=== PATIENT | female | born 1975 | race Caucasian/White ===

== ENCOUNTER 2016-03-02 02:49 | Inpatient (IN) | payer SELFPAY ==
[~2016-03-02 02:49] MED LIST: HYDR-3516 PO; METO25TA3 PO; PROT40TA PO
[2016-03-02 02:51] VITALS: BP 181/110; PULSE 92; RESP 16; TEMP 98.2; O2SAT 98
[2016-03-02] MEDS ORDERED: SODIUM CHLOR 0.9% 1000 ML INJ 1,000 ML IV SCH (03:22)
[2016-03-02] MEDS ORDERED: LIDOCAINE VISCOUS 2% SOLN 15 ML UDC PO ONE (03:30)
[2016-03-02] MEDS ORDERED: SODIUM CHLORIDE 0.9% FLUSH 5 ML FLUSH IVF PRN (03:30)
[2016-03-02] MEDS ORDERED: ALUMINUM/MAGNESIUM/SIMETH 30 ML CUP PO ONE (03:30)
[2016-03-02 04:12] VITALS: RESP 16; O2SAT 100
[2016-03-02 04:12] LABS: AUTOMATED NEUTROPHIL # 11.8 TH/MM3 (1.8-7.7); BASOPHIL # 0.1 TH/MM3 (0-0.2); BASOPHIL % 0.6 % (0.0-2.0); EOSINOPHIL # 0.1 TH/MM3 (0-0.4); EOSINOPHIL % 0.6 % (0.0-4.0); HEMO FLAGS DIFF FINAL; LYMPH % 12.6 % (9.0-44.0); LYMPHOCYTE # 1.8 TH/MM3 (1.0-4.8); MEAN CELL VOLUME 93.8 FL (80.0-100.0); MEAN CORPUSCULAR HGB CONC 35.2 % (32.0-36.0); MONO % 4.6 % (0.0-8.0); NEUT % 81.6 % (16.0-70.0); PLATELET COUNT 431 TH/MM3 (150-450); RED BLOOD COUNT 4.48 MIL/MM3 (4.00-5.30); RED CELL DISTRIBUTION WIDTH 13.3 % (11.6-17.2); WHITE BLOOD COUNT 14.4 TH/MM3 (4.0-11.0)
[2016-03-02 04:13] LABS: BACTERIA, URINE OCC /hpf; BLOOD, URINE NEG (NEG); COMMENT (UR) CULT NOT INDICATED; CULTURE IF INDICATED CULT NOT INDICATED; GLUCOSE,URINE NEG (NEG); KETONE, URINE NEG (NEG); MUCUS URINE FEW /lpf (OCC); NITRITE,URINE NEG (NEG); SQUAMOUS EPITHELIAL CELL URINE 2 /hpf (0-5); URINE COLOR LIGHT-YELLOW (YELLW/STRAW)
[2016-03-02 04:21] LABS: BICARBONATE 37.6 MEQ/L (21.0-32.0); POTASSIUM 3.3 MEQ/L (3.5-5.1)
[2016-03-02 04:23] LABS: TOTAL BILIRUBIN ADULT 0.2 MG/DL (0.2-1.0)
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
[2016-03-02 04:42] LABS: CALCIUM-PROTEIN CORRECTED 15.4 MG/DL (8.5-10.1)
[2016-03-02] MEDS ORDERED: POTASSIUM CHLORIDE 20 MEQ CONTROLLED RELEASE TAB PO ONE (04:45)
[2016-03-02] MEDS ORDERED: SODIUM CHLOR 0.9% 1000 ML INJ 1,000 ML IV ONE (04:45)
[2016-03-02] MEDS ORDERED: FUROSEMIDE 20 MG/2 ML VIAL IV PUSH ONE (04:45)
[2016-03-02] MEDS ORDERED: NALOXONE HCL 0.4 MG/ML AMP IV PRN (05:30)
[2016-03-02] MEDS ORDERED: SODIUM CHLORIDE 0.9% FLUSH 5 ML FLUSH FLUSH PRN (05:30)
[2016-03-02] MEDS: DOCUSATE SODIUM 100 MG CAP PO SCH ×2 (05:30→17:50)
[2016-03-02] MEDS ORDERED: 1/2 NS + KCL 20 MEQ INJ 1,000 ML IV SCH (05:30)
[2016-03-02] MEDS ORDERED: ACETAMINOPHEN 325 MG TAB PO PRN ×2 (05:30)
[2016-03-02 08:27] VITALS: BP 143/93; PULSE 79; RESP 17; O2SAT 97
[2016-03-02] MEDS ORDERED: PANTOPRAZOLE SOD 40 MG DELAYED RELEASE TAB PO SCH (09:00)
[2016-03-02] MEDS: SODIUM CHLORIDE 0.9% FLUSH 5 ML FLUSH FLUSH SCH ×2 (09:00→20:56)
[2016-03-02] MEDS: ONDANSETRON HCL 4 MG/2 ML VIAL IV PUSH PRN ×2 (09:47→22:19)
[2016-03-02] MEDS ORDERED: SODIUM CHLOR 0.9% IV ONE (10:00)
[2016-03-02] MEDS ORDERED: ZOLEDRONIC ACID IV ONE (10:00)
[2016-03-02] MEDS: SODIUM CHLOR 0.9% 1000 ML INJ 1,000 ML IV SCH ×3 (10:18→23:35)
[2016-03-02 11:55] VITALS: BP 129/99; PULSE 76; RESP 18; O2SAT 93
[2016-03-02] MEDS: CALCITONIN SALMON INJ 400 UNITS/2 ML VIAL SQ SCH ×2 (13:04→23:52)
--- NOTE | 2016-03-02 13:17 | PD.CONS ---
HPI Service Nephrology Consult Requested By Reason for Consult Hypercalcemia Primary Care Physician No Primary Care Physician History of Present Illness Ms. Howard is a 40 year old with history of tobacco abuse. She also drinks alcohol but infrequently. She reports that she has been having abdominal discomfort and to get relief she was taking up to 45-50 Tums/day. She was also taking 3 Ibuprofen daily. In the ER she is noted to have serum Calcium of 16.4. She also has metabolic alkalosis, and renal insufficiency. She tested positive for ETOH. Review of Systems Constitutional: COMPLAINS OF: Fatigue, DENIES: Fever, Weight gain Respiratory: DENIES: Cough, Wheezing, Hemoptysis Cardiovascular: DENIES: Chest pain Gastrointestinal: COMPLAINS OF: Abdominal pain, DENIES: Black stools, Difficulty Swallowing Past Family Social History Allergies: Coded Allergies: No Known Allergies (Verified , 03/02/16) Past Medical History abdominal discomfort. Reported Medications Ibuprofen Tums Active Ordered Medications Current Medications Medications (Trade) Dose Ordered Sig/Gall[place] Route Start Time Stop Time Status Last Admin (02/08 NS + KCl 20 Meq Inj) 1,000 ml @ 100 mls/hr Q10H IV 03/02/16 05:30 03/02/16 06:47 (Protonix) 40 mg DAILY PO 03/02/16 09:00 03/02/16 08:25 (NS Flush) 2 ml UNSCH PRN FLUSH 03/02/16 05:30 (NS Flush) 2 ml BID FLUSH 03/02/16 09:00 (Tylenol) 650 mg Q4H PRN PO 03/02/16 05:30 (Colace) 100 mg Q12H PO 03/02/16 05:30 (Tylenol) 650 mg Q6H PRN PO 03/02/16 05:30 (Roxicodone) 5 mg Q4H PRN PO 03/02/16 05:30 03/02/16 09:56 Naloxone HCl 0.4 mg 0.4 mg UNSCH PRN IV 03/02/16 05:30 (NS 1000 ml Inj) 1,000 ml @ 150 mls/hr Q6H40M IV 03/02/16 08:51 03/02/16 10:18 (Zofran Inj) 4 mg Q4H PRN IV PUSH 03/02/16 09:45 03/02/16 09:47 (Miacalcin Inj) 50 units Q12HR SQ 03/02/16 10:15 03/04/16 09:00 03/02/16 13:04 Family History non contributory Social History smokinPPD. ETOH: infrequent according to her. Physical Exam Vital Signs Vital Signs Date Time Temp Pulse Resp B/P Pulse Ox O2 Delivery O2 Flow Rate FiO2 03/02/16 11:55 76 18 129/99 93 Room Air 03/02/16 08:27 79 17 143/93 97 Room Air 03/02/16 04:12 16 100 Room Air 03/02/16 03:15 16 03/02/16 02:51 98.2 92 16 181/110 98 Room Air Physical Exam GENERAL: awake, alert. SKIN: Warm and dry. HEAD: Normocephalic. EYES: No scleral icterus. No injection or drainage. NECK: Supple, trachea midline. No JVD or lymphadenopathy. CARDIOVASCULAR: Regular rate and rhythm without murmurs, gallops, or rubs. RESPIRATORY: Breath sounds equal bilaterally. No accessory muscle use. GASTROINTESTINAL: Abdomen soft, non-tender, nondistended. MUSCULOSKELETAL: No cyanosis, or edema. BACK: Nontender without obvious deformity. No CVA tenderness. Laboratory Laboratory Tests Test 03/02/16 03/02/16 03:50 03:55 White Blood Count 14.4 Red Blood Count 4.48 Hemoglobin 14.8 Hematocrit 42.0 Mean Corpuscular Volume 93.8 Mean Corpuscular Hemoglobin 33.0 Mean Corpuscular Hemoglobin 35.2 Concent Red Cell Distribution Width 13.3 Platelet Count 431 Mean Platelet Volume 7.8 Neutrophils (%) (Auto) 81.6 Lymphocytes (%) (Auto) 12.6 Monocytes (%) (Auto) 4.6 Eosinophils (%) (Auto) 0.6 Basophils (%) (Auto) 0.6 Neutrophils # (Auto) 11.8 Lymphocytes # (Auto) 1.8 Monocytes # (Auto) 0.7 Eosinophils # (Auto) 0.1 Basophils # (Auto) 0.1 CBC Comment DIFF FINAL Differential Comment Sodium Level 142 Potassium Level 3.3 Chloride Level 97 Carbon Dioxide Level 37.6 Anion Gap 7 Blood Urea Nitrogen 25 Creatinine 1.40 Estimat Glomerular Filtration 41 Rate Random Glucose 100 Calcium Level 16.4 Protein Corrected Calcium 15.4 Total Bilirubin 0.2 Aspartate Amino Transf 17 (AST/SGOT) Alanine Aminotransferase 21 (ALT/SGPT) Alkaline Phosphatase 72 Total Protein 8.2 Albumin 4.5 Lipase 211 Ethyl Alcohol Level 71 Urine Color LIGHT-YELLOW Urine Turbidity HAZY Urine pH 7.0 Urine Specific [place] 1.008 Urine Protein NEG Urine Glucose (UA) NEG Urine Ketones NEG Urine Occult Blood NEG Urine Nitrite NEG Urine Bilirubin NEG Urine Urobilinogen LESS THAN 2.0 Urine Leukocyte Esterase NEG Urine RBC 2 Urine WBC 5 Urine Squamous Epithelial 2 Cells Urine Amorphous Sediment OCC Urine Bacteria OCC Urine Mucus FEW Microscopic Urinalysis Comment CULT NOT INDICATED Result Diagram: 03/02/1634903/02/16349 Assessment and Plan Problem List: (1) Hypercalcemia Plan: 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 Patient was advised to avoid use of Tums in excess. IVF. Saline diuresis. Added Calcitonin. Obtain PTH, PTH related peptide, 1-25 dihydroxy Vitamin D. Monitor serum Calcium. She already has been given Zometa by the admitting physician/ER. (2) Acute kidney injury Plan: likely due to hypercalcemia, pre-renal azotemia. Hypercalcemia can cause nephrogenic DI (partial). Continue IVF. Avoid nephrotoxic agents. (3) Tobacco abuse Plan: cessation was advised. Assessment and Plan Thanks for the consult. Ketan Bowens MD Mar 02, 2016 13:17
--- NOTE | 2016-03-02 14:06 | HHI.HP ---
[facility] No Primary Care Physician Admission Diagnosis Hyercalcemia, Chronic Pain, Tobaccoism Diagnoses: Travel History International Travel<30 Days: No Contact w/Intl Traveler <30 Da: No Traveled to Known Affected Are: No History of Present Illness 40-year-old female with a history of peptic ulcer disease diagnosed by EGD 2 years ago, however not able to afford PPI, who presents with a 2 year history of worsening crampy epigastric pain intermittently radiating to the back, associated with nausea and vomiting. He presents to the ER because she has been experiencing progressive worsening malaise, to the point where she sleeps all day as well as worse epigastric pain, nausea and vomiting. She does report a small amount of hematemesis today, but denies any coffee-ground emesis, denies any melena. Calcium found to be 16.4 on labs performed in the ER. Patient does report using Tums for her epigastric pain, about 50 per day; she says her Tums intake has been increasing over the past 2 years, however more so over the past several months. Review of Systems Other Performed and negative except for history of present illness and past medical history. Past Family Social History Past Medical History //Peptic ulcer disease. Patient reports undergoing EGD 2 years ago with positive ulcer. She says she is supposed to be on PPI, however is taking Zantac instead. //Past medical history positive for history of dizziness, migraines, irregular periods, chronic neck pain, history of eardrum damage, fiber myalgia, arthritis , herniated disc, OCD, ADD, anxiety, claustrophobia, history of suicide attempt. Patient denies any suicidal ideation currently. Past Surgical History carpal tunnel nerve release bilaterally EGD 2 years ago Reported Medications Patient takes Zantac, as well as supratherapeutic doses of Tums. Allergies: Coded Allergies: No Known Allergies (Verified , 03/02/16) Family History Father committed suicide. She believes her mother has hypertension, but they are estranged Social History She reports smoking 1 pack per day for the past 30 years. She reports drinking one drink about once weekly. Denies any withdrawal in the past. Of note, most recent admissions have been positive for alcohol. She denies any illicit drugs. Physical Exam Vital Signs Vital Signs Date Time Temp Pulse Resp B/P Pulse Ox O2 Delivery O2 Flow Rate FiO2 03/02/16 11:55 76 18 129/99 93 Room Air 03/02/16 08:27 79 17 143/93 97 Room Air 03/02/16 04:12 16 100 Room Air 03/02/16 03:15 16 03/02/16 02:51 98.2 92 16 181/110 98 Room Air Physical Exam GENERAL: Thin 40-year-old female. Alert and oriented 3. SKIN: No rashes, ecchymoses or lesions. Cool and dry. HEAD: Atraumatic. Normocephalic. No temporal or scalp tenderness. EYES: Pupils equal round and reactive. Extraocular motions intact. No scleral icterus. No injection or drainage. ENT: Nose without bleeding, purulent drainage or septal hematoma. Throat without erythema, tonsillar hypertrophy or exudate. Uvula midline. Airway patent. NECK: Trachea midline. No JVD or lymphadenopathy. Supple, nontender, no meningeal signs. CARDIOVASCULAR: Regular rate and rhythm without murmurs, gallops, or rubs. RESPIRATORY: Clear to auscultation. Breath sounds equal bilaterally. No wheezes , rales, or rhonchi. GASTROINTESTINAL: Abdomen soft, non-tender, nondistended. No hepato-splenomegaly , or palpable masses. No rebound. No guarding. MUSCULOSKELETAL: Extremities without clubbing, cyanosis, or edema. No joint tenderness, effusion, or edema noted. No calf tenderness. Negative Homans sign bilaterally. NEUROLOGICAL: Awake and alert. Cranial nerves II through XII intact. Motor and sensory grossly within normal limits. Five out of 5 muscle strength in all muscle groups. Normal speech. Laboratory Laboratory Tests Test 03/02/16 03/02/16 03:50 03:55 White Blood Count 14.4 Red Blood Count 4.48 Hemoglobin 14.8 Hematocrit 42.0 Mean Corpuscular Volume 93.8 Mean Corpuscular Hemoglobin 33.0 Mean Corpuscular Hemoglobin 35.2 Concent Red Cell Distribution Width 13.3 Platelet Count 431 Mean Platelet Volume 7.8 Neutrophils (%) (Auto) 81.6 Lymphocytes (%) (Auto) 12.6 Monocytes (%) (Auto) 4.6 Eosinophils (%) (Auto) 0.6 Basophils (%) (Auto) 0.6 Neutrophils # (Auto) 11.8 Lymphocytes # (Auto) 1.8 Monocytes # (Auto) 0.7 Eosinophils # (Auto) 0.1 Basophils # (Auto) 0.1 CBC Comment DIFF FINAL Differential Comment Sodium Level 142 Potassium Level 3.3 Chloride Level 97 Carbon Dioxide Level 37.6 Anion Gap 7 Blood Urea Nitrogen 25 Creatinine 1.40 Estimat Glomerular Filtration 41 Rate Random Glucose 100 Calcium Level 16.4 Protein Corrected Calcium 15.4 Total Bilirubin 0.2 Aspartate Amino Transf 17 (AST/SGOT) Alanine Aminotransferase 21 (ALT/SGPT) Alkaline Phosphatase 72 Total Protein 8.2 Albumin 4.5 Lipase 211 Ethyl Alcohol Level 71 Urine Color LIGHT-YELLOW Urine Turbidity HAZY Urine pH 7.0 Urine Specific [place] 1.008 Urine Protein NEG Urine Glucose (UA) NEG Urine Ketones NEG Urine Occult Blood NEG Urine Nitrite NEG Urine Bilirubin NEG Urine Urobilinogen LESS THAN 2.0 Urine Leukocyte Esterase NEG Urine RBC 2 Urine WBC 5 Urine Squamous Epithelial 2 Cells Urine Amorphous Sediment OCC Urine Bacteria OCC Urine Mucus FEW Microscopic Urinalysis Comment CULT NOT INDICATED Result Diagram: 03/02/16 0350 03/02/16 0350 Assessment and Plan Assessment and Plan //Chronic worsening epigastric pain //Nausea and vomiting. Chronic. Worsening. //History of peptic ulcer disease. Not on PPI. //Patient reporting slight hematemesis on admission Start PPI. Stop Tums -Suspect chronic alcoholism. Hemoglobin appears acceptable. No signs of anemia -Recent CT abdomen last month with only bilateral ovarian follicles, no acute findings. -Zofran when necessary. Could be chronic peptic ulcer disease. -Consult gastroenterology. //Hypercalcemia. Acute -Likely secondary to Tums ingestion which patient has been taking about 50 tablets per day. -Stop Tums. Start PPI for history of peptic ulcer disease. -Status post zoledronate IV in ER. Calcitonin per nephrology. Nephrology consulted. Appreciate assistance. //Acute kidney injury. -Creatinine on admission 1.4. Baseline creatinine 0.9 -Suspect prerenal secondary to dehydration from nausea and vomiting. -IV hydration. Monitor. Appreciate nephrology assistance. //Leukocytosis. Likely secondary to nausea and vomiting. No fevers. -Monitor for signs of infection. //Suspected chronic alcoholism. -She ports only drinking once per week. Denies any withdrawal. However she is consistently alcohol positive. -Liver functions appear normal. INR ordered and pending. -We'll monitor for signs of withdrawal. //Hypocalcemia. Acute. Replaced. Monitor. //Tobaccoism. Counseling provided. Cessation strongly advised. //Prophylaxis. SCDs. Hold off on anticoagulation in the setting of possible acute on chronic peptic ulcer disease. Discussed Condition With Patient, nurse Physician Certification 2 Midnight Certification Type: Admission for Inpatient Services Order for Inpatient Services The services are ordered in accordance with Medicare regulations or non- Medicare payer requirements, as applicable. In the case of services not specified as inpatient-only, they are appropriately provided as inpatient services in accordance with the 2-midnight benchmark. Estimated LOS (days): 2 days is the estimated time the patient will need to remain in the hospital, assuming treatment plan goals are met and no additional complications. Post-Hospital Plan: Not yet determined Garett Keita MD Mar 02, 2016 14:06
--- NOTE | 2016-03-02 14:26 | PD.CONS ---
HPI History of Present Illness This is a 40 year old female patient who came to the ER for evaluation of nausea /vomiting. She has intermittent nausea and vomiting and normally takes Protonix , but recently ran out about 2 weeks ago. Since that time, her symptoms have become worse. She has an intermittent mid abdominal pain that she describes as burning and radiates to her back. This is aggravated by food intake, but sometimes even taking a sip of water will aggravate this. She has been taking TUMS frequently for this. She has been having nausea, vomiting and reports that she does occasional vomit red blood. She states that she vomited a very small amount of red blood earlier today. There was only one episode of hematemesis. She also reports abnormal weight loss, she cannot exactly quantify this but states she has gone a pant size down. She has constipation, but states it is controlled without medications. She denies any blood in her stool. She denies any vaginal bleeding. She has been taking excedrin and ibuprofen. She last had EGD/colonoscopy (07/26/14) for evaluation of anemia revealed gastritis, normal colon. Small intestine biopsy with small intestinal mucosa without significant histopathologic abnormality, mild chronic focally active gastritis, negative for Helicobacter pylori. Small bowel follow-through (07/26/2014) revealed unremarkable small bowel examination. (Felecia Diaz) PFSH Past Medical History Hx duodenal bulb ulcers Gastritis Migraines Chronic neck pain Fibromyalgia Arthritis Herniated disc Obsessive-compulsive disorder EGD Anxiety Claustrophobia History of suicide attempt Past Surgical History Carpal tunnel nerve release bilaterally EGD 2 years ago (Felecia Diaz) Coded Allergies: No Known Allergies (Verified , 03/02/16) Medications Allergies Coded Allergies Type Severity Reaction Last Updated Verified No Known Allergies 03/02/16 Yes Active Scripts Medications Dose Route/Sig Days Date Category Family History Father committed suicide. She believes her mother has hypertension, but they are estranged Social History She reports smoking 1 pack per day for the past 30 years. She reports drinking one drink about once weekly. Denies any withdrawal in the past. She denies any illicit drugs. (Felecia Diaz) Review of Systems Constitutional: COMPLAINS OF: Fatigue, Weight loss, Change in appetite Respiratory: DENIES: Cough, Shortness of breath Cardiovascular: DENIES: Chest pain Gastrointestinal: COMPLAINS OF: Constipation, Nausea, Vomiting, Heartburn, Hematemesis, DENIES: Black stools, Bloody stools, Diarrhea, Swelling of Abdomen Musculoskeletal: COMPLAINS OF: Joint pain, Back pain Integumentary: DENIES: Jaundice Hematologic/lymphatic: DENIES: Bruising Neurologic: COMPLAINS OF: Headache Psychiatric: DENIES: Confusion (JoeFelecia Canchola GABRIEL) GI Exam Vitals I&O Vital Signs Date Time Temp Pulse Resp B/P Pulse Ox O2 Delivery O2 Flow Rate FiO2 03/02/16 11:55 76 18 129/99 93 Room Air 03/02/16 08:27 79 17 143/93 97 Room Air 03/02/16 04:12 16 100 Room Air 03/02/16 03:15 16 03/02/16 02:51 98.2 92 16 181/110 98 Room Air Laboratory Test 03/02/16 03/02/16 03:50 03:55 White Blood Count 14.4 TH/MM3 Red Blood Count 4.48 MIL/MM3 Hemoglobin 14.8 GM/DL Hematocrit 42.0 % Mean Corpuscular Volume 93.8 FL Mean Corpuscular Hemoglobin 33.0 PG Mean Corpuscular Hemoglobin 35.2 % Concent Red Cell Distribution Width 13.3 % Platelet Count 431 TH/MM3 Mean Platelet Volume 7.8 FL Neutrophils (%) (Auto) 81.6 % Lymphocytes (%) (Auto) 12.6 % Monocytes (%) (Auto) 4.6 % Eosinophils (%) (Auto) 0.6 % Basophils (%) (Auto) 0.6 % Neutrophils # (Auto) 11.8 TH/MM3 Lymphocytes # (Auto) 1.8 TH/MM3 Monocytes # (Auto) 0.7 TH/MM3 Eosinophils # (Auto) 0.1 TH/MM3 Basophils # (Auto) 0.1 TH/MM3 CBC Comment DIFF FINAL Differential Comment Sodium Level 142 MEQ/L Potassium Level 3.3 MEQ/L Chloride Level 97 MEQ/L Carbon Dioxide Level 37.6 MEQ/L Anion Gap 7 MEQ/L Blood Urea Nitrogen 25 MG/DL Creatinine 1.40 MG/DL Estimat Glomerular Filtration 41 ML/MIN Rate Random Glucose 100 MG/DL Calcium Level 16.4 MG/DL Protein Corrected Calcium 15.4 MG/DL Total Bilirubin 0.2 MG/DL Aspartate Amino Transf 17 U/L (AST/SGOT) Alanine Aminotransferase 21 U/L (ALT/SGPT) Alkaline Phosphatase 72 U/L Total Protein 8.2 GM/DL Albumin 4.5 GM/DL Lipase 211 U/L Ethyl Alcohol Level 71 MG/DL Urine Color LIGHT-YELLOW Urine Turbidity HAZY Urine pH 7.0 Urine Specific [place] 1.008 Urine Protein NEG mg/dL Urine Glucose (UA) NEG mg/dL Urine Ketones NEG mg/dL Urine Occult Blood NEG Urine Nitrite NEG Urine Bilirubin NEG Urine Urobilinogen LESS THAN 2.0 MG/DL Urine Leukocyte Esterase NEG Urine RBC 2 /hpf Urine WBC 5 /hpf Urine Squamous Epithelial 2 /hpf Cells Urine Amorphous Sediment OCC Urine Bacteria OCC /hpf Urine Mucus FEW /lpf Microscopic Urinalysis Comment CULT NOT INDICATED Physical Examination HEENT: Normocephalic; atraumatic; no jaundice. Throat is clear. NECK: Neck is supple, no JVD, no lymphadenopathy. CHEST: CTA. CARDIAC: RRR ABDOMEN: Soft, nondistended, epigastric/midabdominal tenderness; no hepatosplenomegaly; bowel sounds are present in all four quadrants. EXTREMITIES: No clubbing, cyanosis, or edema. SKIN: Normal; no rash; no jaundice. LYMPHEDEMA THERAPIST: No focal deficits; alert and oriented times three. (Felecia Diaz [facility]) Assessment and Plan Plan ASSESSMENT: - Upper GIB, Hematemesis. Pt reports that she has this intermittently but that she ran out of her Protonix 2 weeks ago and has had worsening symptoms. She has had decreased appetite, abdominal pain, n/v and had one episode of hematemesis consisting of a small amount of red blood earlier this am. She has been taking TUMS (>20/day). EGD/colonoscopy (07/26/14) for evaluation of anemia revealed gastritis, normal colon. Small intestine biopsy with small intestinal mucosa without significant histopathologic abnormality, mild chronic focally active gastritis, negative for Helicobacter pylori. Small bowel follow-through (07/26/2014) revealed unremarkable small bowel examination. (+) Ibuprofen and excedrin use. HH 14.8, 42.0. - Abdominal pain, N/V. worse x 2 weeks when she ran out of PPI. - Leukocytosis. 14.4. Likely reactive from vomiting. - MANDA with electrolyte abnormalities, hypercalcemia, hypocalcemia per primary. Of note, she has been taking > 20 TUMS per day per patient. PLAN: - Plan for egd in am - Obtain consents - Clear liquids - NPO after MN - Cont. PPI - Zofran prn - IVF - CBC, BMP in am - Supportive care - Further recommendations to follow based on results of above - Pt seen and examined by Dr. Barcenas and myself and this note is written on her behalf (Felecia Diaz) Physician Comments seen, examined agree with above (Reva Barcenas MD) Felecia Diaz Mar 02, 2016 14:26 Reva Barcenas MD Mar 02, 2016 18:04
[2016-03-02] MEDS: PANTOPRAZOLE SODIUM 40 MG VIAL IV PUSH SCH (15:09)
[2016-03-02 15:21] LABS: INTERNATIONAL NORMALIZED RATIO 0.9 RATIO; PROTHROMBIN TIME - PATIENT 10.3 SEC (9.8-11.6)
[2016-03-02 15:25] LABS: BICARBONATE 31.5 MEQ/L (21.0-32.0); POTASSIUM 3.3 MEQ/L (3.5-5.1)
--- NOTE | 2016-03-02 16:21 | EKG ---
Date Performed: 03/02/2016 Time Performed: 05:04:04 PTAGE: 40 years EKG: Sinus rhythm When compared to previous tracing, the patient is no longer Bradycardic. NORMAL ECG PREVIOUS TRACING : 01/12/2016 18.36 DOCTOR: Jodi Baig Interpretating Date/Time 03/02/2016 16:20:28
[2016-03-02 16:30] VITALS: BP 126/84; PULSE 67; RESP 16; TEMP 97.9; O2SAT 100
[2016-03-02 17:15] VITALS: BP 148/85; PULSE 63; RESP 18; O2SAT 98
[2016-03-02] MEDS ORDERED: POTASSIUM CHLOR 10 MEQ PREMIX 100 ML IV SCH (18:00)
[2016-03-02 18:43] LABS: AMPHETAMINE, URINE NEG (NEG); BARBITURATES, URINE NEG (NEG); COCAINE, URINE NEG (NEG)
[2016-03-02] MEDS: POTASSIUM CHLOR 10 MEQ PREMIX 100 ML IV SCH ×2 (20:55→23:34)
[2016-03-03] VITALS (7 sets, daily range): BP systolic 100–139; BP diastolic 57–82; PULSE 63–84; RESP 16–20; TEMP 97.2–100.9; O2SAT 96–100
[2016-03-03] MEDS ORDERED: POTASSIUM CHLOR 10 MEQ PREMIX 100 ML IV SCH (01:30)
[2016-03-03] MEDS: POTASSIUM CHLOR 10 MEQ PREMIX 100 ML IV SCH ×4 (01:49→16:12)
[2016-03-03] MEDS: DOCUSATE SODIUM 100 MG CAP PO SCH ×2 (04:09→17:30)
[2016-03-03] MEDS: PANTOPRAZOLE SODIUM 40 MG VIAL IV PUSH SCH ×2 (04:10→16:13)
[2016-03-03] MEDS: SODIUM CHLOR 0.9% 1000 ML INJ 1,000 ML IV SCH (04:11)
[2016-03-03 07:26] LABS: HEMATOCRIT 31.7 % (35.0-46.0); MEAN CELL VOLUME 96.2 FL (80.0-100.0); MEAN CORPUSCULAR HEMOGLOBIN 32.1 PG (27.0-34.0); MEAN CORPUSCULAR HGB CONC 33.4 % (32.0-36.0); PLATELET COUNT 256 TH/MM3 (150-450); RED BLOOD COUNT 3.29 MIL/MM3 (4.00-5.30); RED CELL DISTRIBUTION WIDTH 13.2 % (11.6-17.2); REVIEW FLAG FINAL; WHITE BLOOD COUNT 9.1 TH/MM3 (4.0-11.0)
[2016-03-03 07:47] LABS: BICARBONATE 27.9 MEQ/L (21.0-32.0); MAGNESIUM 1.4 MG/DL (1.5-2.5); POTASSIUM 3.2 MEQ/L (3.5-5.1)
[2016-03-03] MEDS ORDERED: POTASSIUM CHLORIDE 20 MEQ CONTROLLED RELEASE TAB PO ONE (08:30)
[2016-03-03] MEDS ORDERED: PROPOFOL 200 MG/20 ML AMP IV ONE (09:14)
--- NOTE | 2016-03-03 10:00 | RADRPT ---
EXAM DATE/TIME: 03/03/2016 09:33 [place] COMPARISON: CHEST SINGLE AP, January 12, 2016, 18:49. INDICATIONS : Fever, evaluate heart and lungs. Cough. MEDICAL HISTORY : Anemia. SURGICAL HISTORY : None. ENCOUNTER: Subsequent ACUITY: 2 days PAIN SCORE: 8/10 LOCATION: chest FINDINGS: A single view of the chest demonstrates the lungs to be symmetrically aerated without evidence of mas s, infiltrate or effusion. The cardiomediastinal contours are unremarkable. Osseous structures are intact. CONCLUSION: No acute disease. Baldemar Solorio MD on March 03, 2016 at 9:58 Board Certified Radiologist. This report was verified electronically.
--- NOTE | 2016-03-03 11:09 | HHI.NPPN ---
Subjective Renal Failure: Acute Interval History Renal function is better. Calcium is also better. (Alissa Coulter) Review of Systems General General Remarks no complaints (Alissa Coulter) Objective Data Data 03/02/16 03/03/16 19:00 07:00 Intake Total 2430 ml Balance 2430 ml Intake Oral 480 ml IV Total 1950 ml # Voids 1 Vital Signs Date Time Temp Pulse Resp B/P Pulse Ox O2 Delivery O2 Flow Rate FiO2 03/03/16 09:00 97.2 76 18 126/78 97 03/03/16 07:58 97.2 76 20 125/78 97 03/03/16 04:00 100.9 81 16 139/79 97 03/03/16 00:00 98.7 63 16 124/71 97 03/02/16 17:15 63 18 148/85 98 Room Air 03/02/16 16:30 97.9 67 16 126/84 100 03/02/16 11:55 76 18 129/99 93 Room Air (Alissa Coulter) -: 03/03/16 0658 03/03/16 0658 Imaging Last 72 hours Impressions Chest X-Ray 03/03/16 0000 Signed Impressions: Service Date/Time: Thursday, March 03, 2016 09:33 - CONCLUSION: No acute disease. Baldemar Solorio MD (Alissa Coulter) Physical Exam General Appearance: No Acute Distress, Comfortable (Alissa Coulter) Throat Throat Exam: Oral Mucosa [place] & Moist (Alissa Coulter) Pulmonary Resp Exam: Clear Bilaterally, Breath Sounds Equal (Alissa Coulter) Cardiology CV Exam: Regular, Normal Sinus Rhythm (Alissa Coulter) Gastrointestinal/Abdomen GI Exam: Soft, Non-Tender (Alissa Coulter) Musculoskeletal MS Exam: Joints Intact, Normal Gait, Good Strength (Alissa Coulter) Integumentary Skin Exam: Clear, Warm, Dry (Alissa Coulter) Extremeties Extremities Exam: No Edema, Pedal Pulses Palpable (Alissa Coulter) Neurologic Neuro Exam: Alert, Awake, Oriented, Speech Clear, Moving All Extremities ( Alissa Coulter) Psychiatric Psych Exam: Appropriate Responses (Alissa Coulter) Assessment/Plan Discussed Condition With: Patient Electrolyte Assessment: Hypercalcemia Problem List: (1) Hypercalcemia Plan: 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 Patient was advised to avoid use of Tums in excess. calcium has corrected with IVF. Also given calcitonin She was given a dose of Zometa when in the ER no further intervention required at this time (2) Acute kidney injury Plan: likely due to hypercalcemia, pre-renal azotemia. Hypercalcemia can cause nephrogenic DI (partial). creatinine initially improved with IVF, which were stopped encourage oral intake Avoid nephrotoxic agents. replace potassium and magnesium, encourage nutrition (3) Tobacco abuse Plan: cessation was advised. Plan we will sign off at this time (Alissa Coulter) Plan patient was seen and examined. Renal function and hypercalcemia both have improved. We will sign off at this time. (Ketan Bowens MD) Alissa Coulter Mar 03, 2016 11:09 Ketan Bowens MD Mar 04, 2016 14:12
[2016-03-03] MEDS: SODIUM CHLORIDE 0.9% FLUSH 5 ML FLUSH FLUSH SCH ×2 (11:48→20:42)
[2016-03-03] MEDS: MAGNESIUM SULFATE 1 GM PREMIX 100 ML IV SCH ×2 (11:50→17:29)
[2016-03-03] MEDS: NS + KCL 20 MEQ INJ 1,000 ML IV SCH ×2 (11:53→20:43)
[2016-03-03 12:58] LABS: BETA HCG QUANT LESS THAN 1 MIU/ML (0-5)
--- NOTE | 2016-03-03 16:51 | HHI.PR ---
Subjective Remarks Patient seen this afternoon around 3 PM. Status post EGD today. She says she is feeling a little better than yesterday. Epigastric abdominal pain improving. Still with some nausea this morning. She has not eaten today, however will try to have dinner. Objective Vital Signs Date Time Temp Pulse Resp B/P Pulse Ox O2 Delivery O2 Flow Rate FiO2 03/03/16 15:15 99.6 82 20 103/58 96 03/03/16 11:30 98.2 83 20 132/82 100 03/03/16 09:00 97.2 76 18 126/78 97 03/03/16 07:58 97.2 76 20 125/78 97 03/03/16 04:00 100.9 81 16 139/79 97 03/03/16 00:00 98.7 63 16 124/71 97 03/02/16 17:15 63 18 148/85 98 Room Air I/O 03/02/16 03/02/16 03/02/16 03/03/16 03/03/16 03/03/16 07:00 15:00 23:00 07:00 15:00 23:00 Intake Total 930 ml 1500 ml 1328 ml Balance 930 ml 1500 ml 1328 ml Intake Oral 480 ml 1328 ml IV Total 450 ml 1500 ml # Voids 1 2 # Bowel Movements 0 Result Diagram: 03/03/16 1140 03/03/16 0658 Objective Remarks GENERAL: Sitting up in bed. Appears in a mild amount of pain. Alert and oriented 3. SKIN: Warm and dry. HEAD: Normocephalic. EYES: No scleral icterus. No injection or drainage. NECK: Supple, trachea midline. No JVD. CARDIOVASCULAR: Regular rate and rhythm without murmurs, gallops, or rubs. RESPIRATORY: Breath sounds equal bilaterally. No accessory muscle use. GASTROINTESTINAL: Abdomen soft, non-tender, nondistended. No rebound or guarding. Positive bowel sounds. MUSCULOSKELETAL: No cyanosis, or edema. BACK: Nontender without obvious deformity. No CVA tenderness. A/P Assessment and Plan //Acute on Chronic epigastric pain //Nausea and vomiting. Chronic. Worsening. //History of peptic ulcer disease. Not on PPI. //Patient reporting slight hematemesis on admission Continue PPI. 10 you to hold Tums -Suspect chronic alcoholism. Hemoglobin appears acceptable. No signs of anemia -Recent CT abdomen last month with only bilateral ovarian follicles, no acute findings. -Continue Zofran when necessary. -03/03. EGD negative for ulcer. 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 Hiatal hernia. Biopsy pending. Continue PPI. Reflux in and of itself can cause chronic nausea. Could very likely be secondary to alcohol abuse. Cessation advised. Continue Zofran //Hypercalcemia. Acute. Appears to have resolved. -Likely secondary to Tums ingestion which patient has been taking about 50 tablets per day. -10 you to hold Tums. Continue PPI for history of peptic ulcer disease. -Status post zoledronate IV in ER. Calcitonin per nephrology. Nephrology following. Appreciate assistance. //Acute kidney injury. Improved. -Creatinine on admission 1.4. Baseline creatinine 0.9 -Suspect prerenal secondary to dehydration from nausea and vomiting. -Continue IV fluids. //Leukocytosis. Likely secondary to nausea and vomiting. No fevers. -Monitor for signs of infection. //Suspected chronic alcoholism. -She ports only drinking once per week. Denies any withdrawal. However she is consistently alcohol positive. -Liver functions appear normal. INR ordered and pending. -We'll monitor for signs of withdrawal. //Hypokalemia Acute. Replaced again. Monitor. //Tobaccoism. Counseling provided. Cessation strongly advised. //Prophylaxis. SCDs. Start Lovenox Discharge Planning If tolerating diet, and labs are stable, patient Possibly be discharged home tomorrow morning Garett Keita MD Mar 03, 2016 16:51
[2016-03-03] MEDS ORDERED: ENOXAPARIN SODIUM 40 MG/0.4 ML SYRINGE SQ SCH (18:00)
[2016-03-03] MEDS: ONDANSETRON HCL 4 MG/2 ML VIAL IV PUSH PRN (18:18)
[2016-03-04 00:15] VITALS: BP 92/54; PULSE 72; RESP 16; TEMP 97.2; O2SAT 97
[2016-03-04 04:00] VITALS: BP 113/77; PULSE 60; RESP 16; TEMP 97.5; O2SAT 100
[2016-03-04] MEDS: PANTOPRAZOLE SODIUM 40 MG VIAL IV PUSH SCH (04:23)
[2016-03-04] MEDS: DOCUSATE SODIUM 100 MG CAP PO SCH (04:23)
[2016-03-04] MEDS: ONDANSETRON HCL 4 MG/2 ML VIAL IV PUSH PRN (04:28)
[2016-03-04 07:01] LABS: AUTOMATED NEUTROPHIL # 5.7 TH/MM3 (1.8-7.7); BASOPHIL % 0.5 % (0.0-2.0); EOSINOPHIL # 0.1 TH/MM3 (0-0.4); EOSINOPHIL % 1.6 % (0.0-4.0); HEMO FLAGS DIFF FINAL; LYMPH % 10.7 % (9.0-44.0); LYMPHOCYTE # 0.7 TH/MM3 (1.0-4.8); MEAN CELL VOLUME 95.1 FL (80.0-100.0); MEAN CORPUSCULAR HEMOGLOBIN 32.1 PG (27.0-34.0); MEAN CORPUSCULAR HGB CONC 33.8 % (32.0-36.0); MONO % 5.8 % (0.0-8.0); NEUT % 81.4 % (16.0-70.0); PLATELET COUNT 228 TH/MM3 (150-450); RED BLOOD COUNT 3.36 MIL/MM3 (4.00-5.30); RED CELL DISTRIBUTION WIDTH 13.2 % (11.6-17.2)
[2016-03-04 07:03] LABS: BICARBONATE 24.5 MEQ/L (21.0-32.0); POTASSIUM 3.7 MEQ/L (3.5-5.1)
[2016-03-04 08:00] VITALS: BP 108/66; PULSE 69; RESP 16; TEMP 99.1; O2SAT 97
[2016-03-04] MEDS ORDERED: OMEP1CAP84 PO (08:14)
[2016-03-04] MEDS: SODIUM CHLORIDE 0.9% FLUSH 5 ML FLUSH FLUSH SCH (08:40)
[2016-03-04] MEDS ORDERED: POTASSIUM CHLORIDE INJ 20 MEQ in SODIUM CHLOR 0.9% 1000 ML INJ 1,000 ML IV SCH (08:51)
--- NOTE | 2016-03-04 09:24 | HHI.GIFU ---
Subjective Remarks Resting in bed. Tolerating regular diet. States she continues to have pain, but that it is controlled with pain meds. Requesting pain meds so she can order breakfast. Objective Vitals I&O Vital Signs Date Time Temp Pulse Resp B/P Pulse Ox O2 Delivery O2 Flow Rate FiO2 03/04/16 08:00 99.1 69 16 108/66 97 03/04/16 04:00 97.5 60 16 113/77 100 03/04/16 00:15 97.2 72 16 92/54 97 03/03/16 20:00 99.8 84 16 100/57 97 03/03/16 15:15 99.6 82 20 103/58 96 03/03/16 11:30 98.2 83 20 132/82 100 03/03/16 09:35 80 20 133/77 99 I/O 03/03/16 03/03/16 03/03/16 03/04/16 03/04/16 03/04/16 07:00 15:00 23:00 07:00 15:00 23:00 Intake Total 1500 ml 1328 ml 1080 ml 840 ml Balance 1500 ml 1328 ml 1080 ml 840 ml Intake Oral 1328 ml 480 ml 240 ml IV Total 1500 ml 600 ml 600 ml # Voids 2 2 1 # Bowel Movements 0 Laboratory Laboratory Tests Test 03/03/16 03/04/16 11:40 06:15 Hemoglobin 12.0 10.8 Human Chorionic Gonadotropin, LESS THAN 1 Quant White Blood Count 7.0 Red Blood Count 3.36 Hematocrit 32.0 Mean Corpuscular Volume 95.1 Mean Corpuscular Hemoglobin 32.1 Mean Corpuscular Hemoglobin 33.8 Concent Red Cell Distribution Width 13.2 Platelet Count 228 Mean Platelet Volume 8.0 Neutrophils (%) (Auto) 81.4 Lymphocytes (%) (Auto) 10.7 Monocytes (%) (Auto) 5.8 Eosinophils (%) (Auto) 1.6 Basophils (%) (Auto) 0.5 Neutrophils # (Auto) 5.7 Lymphocytes # (Auto) 0.7 Monocytes # (Auto) 0.4 Eosinophils # (Auto) 0.1 Basophils # (Auto) 0.0 CBC Comment DIFF FINAL Differential Comment Sodium Level 138 Potassium Level 3.7 Chloride Level 106 Carbon Dioxide Level 24.5 Anion Gap 8 Blood Urea Nitrogen 14 Creatinine 1.02 Estimat Glomerular Filtration 60 Rate Random Glucose 80 Calcium Level 8.0 Imaging Last Impressions Chest X-Ray 03/03/16 0000 Signed Impressions: Service Date/Time: Thursday, March 03, 2016 09:33 - CONCLUSION: No acute disease. Baldemar Solorio MD Physical Exam HEENT: Normocephalic; atraumatic; no jaundice. Throat is clear. NECK: Neck is supple, no JVD, no lymphadenopathy. CHEST: CTA CARDIAC: RRR ABDOMEN: Soft, nondistended, nontender; no hepatosplenomegaly; bowel sounds are present in all four quadrants. EXTREMITIES: No clubbing, cyanosis, or edema. SKIN: Normal; no rash; no jaundice. MACHINE HAMPER MAKER: No focal deficits; alert and oriented times three. Assessment and Plan Plan ASSESSMENT: - Upper GIB, Hematemesis. Pt reports that she has this intermittently but that she ran out of her Protonix 2 weeks ago and has had worsening symptoms. She has had decreased appetite, abdominal pain, n/v and had one episode of hematemesis consisting of a small amount of red blood earlier this am. She has been taking TUMS (>20/day). EGD/colonoscopy (07/26/14) for evaluation of anemia revealed gastritis, normal colon. Small intestine biopsy with small intestinal mucosa without significant histopathologic abnormality, mild chronic focally active gastritis, negative for Helicobacter pylori. Small bowel follow-through (07/26/2014) revealed unremarkable small bowel examination. (+) Ibuprofen and excedrin use. S/P EGD (03/03/16)---> gastritis in the antrum, normal duodenum, irregular z line, retroflexion views revealed hiatal hernia. Pathology pending. HH 10.8/32.0. PPI. No further bleeding. - Abdominal pain, N/V. worse x 2 weeks when she ran out of PPI. Improved, controlled with pain meds- although reports she still has this if she does not get her pain meds. - Leukocytosis. IMPROVED - MANDA with electrolyte abnormalities, hypercalcemia, hypocalcemia per primary. Of note, she has been taking > 20 TUMS per day per patient. Calcium now 8.0 PLAN: - JUANITA - Await pathology - Cont. PPI - Zofran prn - GES, can be done as outpatient- as this cannot be done for 48 hours after receiving propofol. - FU VILMA in 2 weeks - Pt seen and examined by Dr. Barcenas and myself and this note is written on her behalf Felecia Diaz Mar 04, 2016 09:24
[2016-03-05 14:40] LABS: PTH RELATED PEPTIDE 0.7 pmol/L (<2.0)
--- NOTE | 2016-03-13 07:45 | HHI.PR ---
Subjective Remarks patient says she is feeling better. Denies any chest pain or shortness of breath. Reports nausea is improved. Says she feels comfortable going home Objective Objective Remarks GENERAL: Sitting up in bed. appears comfortable.. Alert and oriented 3. SKIN: Warm and dry. HEAD: Normocephalic. EYES: No scleral icterus. No injection or drainage. NECK: Supple, trachea midline. No JVD. CARDIOVASCULAR: Regular rate and rhythm without murmurs, gallops, or rubs. RESPIRATORY: Breath sounds equal bilaterally. No accessory muscle use. GASTROINTESTINAL: Abdomen soft, non-tender, nondistended. No rebound or guarding. Positive bowel sounds. MUSCULOSKELETAL: No cyanosis, or edema. BACK: Nontender without obvious deformity. No CVA tenderness. A/P Assessment and Plan //Acute on Chronic epigastric pain //Nausea and vomiting. Chronic. Worsening. //History of peptic ulcer disease. Not on PPI. //Patient reporting slight hematemesis on admission Continue PPI. 10 you to hold Tums -Suspect chronic alcoholism. Hemoglobin appears acceptable. No signs of anemia -Recent CT abdomen last month with only bilateral ovarian follicles, no acute findings. -Continue Zofran when necessary. -03/03. EGD negative for ulcer. 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 Hiatal hernia. Biopsy pending. Continue PPI. Reflux in and of itself can cause chronic nausea. Could very likely be secondary to alcohol abuse. Cessation advised. Continue Zofran -f/u GI outpt. //Hypercalcemia. Acute. Appears to have resolved. -Likely secondary to Tums ingestion which patient has been taking about 50 tablets per day. -10 you to hold Tums. Continue PPI for history of peptic ulcer disease. -Status post zoledronate IV in ER. Calcitonin per nephrology. Nephrology was consulted. Appreciate assistance. -Hypercalcemia was secondary to Tums. Advised patient to stop using Tums beyond package directions. //Vit D deficiency- //Acute kidney injury. Improved. -Creatinine on admission 1.4. Baseline creatinine 0.9 -Suspect prerenal secondary to dehydration from nausea and vomiting. -Resolved. //Leukocytosis. Likely secondary to nausea and vomiting. No fevers. -Resolved. //Suspected chronic alcoholism. -She ports only drinking once per week. Denies any withdrawal. However she is consistently alcohol positive. -Liver functions appear normal. INR ordered and pending. -no signs of withdrawal //Hypokalemia Acute. Replaced again. Monitor. //Tobaccoism. Counseling provided. Cessation strongly advised. //Prophylaxis. SCDs. Lovenox Discharge Planning discharge home. Follow-up with gastroenterology for results of biopsy. -Patient does have vitamin D deficiency, however she will due to follow-up with primary care to verify normalized calcium level prior to replacement Garett Keita MD Mar 13, 2016 07:45
--- NOTE | 2016-03-13 07:46 | HHI.DS ---
Discharge Summary Admission Date Mar 02, 2016 at 05:06 Discharge Date: Mar 04, 2016 Admitting Diagnosis Hyercalcemia, Chronic Pain, Tobaccoism (1) Hypercalcemia ICD Code: E83.52 (2) Acute kidney injury ICD Code: N17.9 Procedures EGD with biopsies. Brief History - From Admission 40-year-old female with a history of peptic ulcer disease diagnosed by EGD 2 years ago, however not able to afford PPI, who presents with a 2 year history of worsening crampy epigastric pain intermittently radiating to the back, associated with nausea and vomiting. He presents to the ER because she has been experiencing progressive worsening malaise, to the point where she sleeps all day as well as worse epigastric pain, nausea and vomiting. She does report a small amount of hematemesis today, but denies any coffee-ground emesis, denies any melena. Calcium found to be 16.4 on labs performed in the ER. Patient does report using Tums for her epigastric pain, about 50 per day; she says her Tums intake has been increasing over the past 2 years, however more so over the past several months. Imaging Last Impressions Chest X-Ray 03/03/16 0000 Signed Impressions: Service Date/Time: Thursday, March 03, 2016 09:33 - CONCLUSION: No acute disease. Baldemar Solorio MD Hospital Course Hypercalcemia resolved with discontinuation of Tums. Patient counseled, will avoid. Patient did undergo EGD with biopsies. 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 Biopsies pending at discharge. Patient was found to have vitamin D deficiency, however due to hypercalcemia, treatment was deferred to primary care. //Acute on Chronic epigastric pain //Nausea and vomiting. Chronic. Worsening. //History of peptic ulcer disease. Not on PPI. //Patient reporting slight hematemesis on admission Continue PPI. 10 you to hold Tums -Suspect chronic alcoholism. Hemoglobin appears acceptable. No signs of anemia -Recent CT abdomen last month with only bilateral ovarian follicles, no acute findings. -Continue Zofran when necessary. -03/03. EGD negative for ulcer. 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 Hiatal hernia. Biopsy pending. Continue PPI. Reflux in and of itself can cause chronic nausea. Could very likely be secondary to alcohol abuse. Cessation advised. Continue Zofran -f/u GI outpt. //Hypercalcemia. Acute. Appears to have resolved. -Likely secondary to Tums ingestion which patient has been taking about 50 tablets per day. -10 you to hold Tums. Continue PPI for history of peptic ulcer disease. -Status post zoledronate IV in ER. Calcitonin per nephrology. Nephrology was consulted. Appreciate assistance. -Hypercalcemia was secondary to Tums. Advised patient to stop using Tums beyond package directions. //Vit D deficiency- //Acute kidney injury. Improved. -Creatinine on admission 1.4. Baseline creatinine 0.9 -Suspect prerenal secondary to dehydration from nausea and vomiting. -Resolved. //Leukocytosis. Likely secondary to nausea and vomiting. No fevers. -Resolved. //Suspected chronic alcoholism. -She ports only drinking once per week. Denies any withdrawal. However she is consistently alcohol positive. -Liver functions appear normal. INR ordered and pending. -We'll monitor for signs of withdrawal. //Hypokalemia Acute. Replaced again. Monitor. //Tobaccoism. Counseling provided. Cessation strongly advised. //Prophylaxis. SCDs. Lovenox Pt Condition on Discharge: Good Discharge Disposition: Discharge Home Discharge Time: <= 30 minutes Discharge Instructions DIET: Follow Instructions for: As Tolerated, No Restrictions Activities you can perform: Regular-No Restrictions Follow up Referrals: Gastroenterology - 1 Week with Reva Barcenas MD PCP Follow-up - 1 Week Medication Profile: No Active Prescriptions or Reported Meds Additional Information medications:Zegerid 40 mg once a day Garett Keita MD Mar 13, 2016 07:45
== END 2016-03-04 11:34 | disposition home or self-care (01) | DRG 641 ==
LOC: NEPE 02:49 → NEDA 05:06 → HOCB 18:53
PROVIDERS: ADMIT Internal Medicine; ATTEND Internal Medicine
PROC: 0DB68ZX Excision of Stomach, Via Natural or Artificial Opening Endoscopic, Diagnostic (ICD-10-PCS; 2016-03-03)
PROC: 0DB98ZX Excision of Duodenum, Via Natural or Artificial Opening Endoscopic, Diagnostic (ICD-10-PCS; principal; 2016-03-03 09:00)
DX: E83.52 Hypercalcemia (principal); N17.9 Acute kidney failure, unspecified; E87.3 Alkalosis; K92.0 Hematemesis; D50.0 Iron deficiency anemia secondary to blood loss (chronic); E87.6 Hypokalemia; F10.10 Alcohol abuse, uncomplicated; F17.210 Nicotine dependence, cigarettes, uncomplicated; D72.829 Elevated white blood cell count, unspecified; F42.9 Obsessive-compulsive disorder, unspecified; G89.29 Other chronic pain; G43.909 Migraine, unspecified, not intractable, without status migrainosus; K29.70 Gastritis, unspecified, without bleeding; K59.00 Constipation, unspecified; R63.4 Abnormal weight loss; Z87.11 Personal history of peptic ulcer disease; M79.7 Fibromyalgia; Z91.5 Personal history of self-harm; E83.51 Hypocalcemia; F40.240 Claustrophobia; K21.9 Gastro-esophageal reflux disease without esophagitis; K44.9 Diaphragmatic hernia without obstruction or gangrene; N83.00 Follicular cyst of ovary, unspecified side; H91.90 Unspecified hearing loss, unspecified ear
CPT/HCPCS: 71010; 80048; 80053; 80069; 80307; 80320; 81001; 82306; 82397; 82652; 83690; 83735; 83970; 84702; 84703; 85018; 85025; 85027; 85610; 88305; 88312; 93005; 96360; C9113; J0630; J1650; J1940; J2405; J3475; J3480; J3489; J7030; J7050

== ENCOUNTER 2016-05-19 15:14 | Inpatient (IN) | payer SELFPAY ==
[~2016-05-19] VITALS: Ht 162.6 cm; Wt 47.0 kg
[2016-05-19] VITALS (7 sets, daily range): BP systolic 99–147; BP diastolic 53–78; PULSE 79–97; RESP 16–18; TEMP 97.3–98.5; O2SAT 94–100
[~2016-05-19 15:14] MED LIST changes: -HYDR-3516 PO; -METO25TA3 PO; +OMEP1CAP84 PO; -PROT40TA PO
--- NOTE | 2016-05-19 15:32 | PD ---
Physical Exam Time Seen by Provider: 15:28 Narrative Pt presents to the emergency department for evaluation of "whooshing" sound in ears for 2 weeks. Aggravated with standing up. States has associated heart palpitations, headache and lightheadedness. States this has happened in the past when she is anemic or has high calcium. LMP 1 week ago. VSS. Awaiting bed placement. Data Data Last Documented VS Vital Signs Date Time Temp Pulse Resp B/P Pulse Ox O2 Delivery O2 Flow Rate FiO2 05/19/16 15:16 98.5 89 16 147/78 100 Room Air MDM Supervised Visit with WILL: Maryanne Hudson May 19, 2016 15:32
[2016-05-19] MEDS ORDERED: SODIUM CHLOR 0.9% 1000 ML INJ 1,000 ML IV ONE (16:06)
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
[2016-05-19] MEDS ORDERED: SODIUM CHLORIDE 0.9% FLUSH 10 ML FLUSH IVF PRN (16:15)
[2016-05-19] MEDS ORDERED: PANTOPRAZOLE SODIUM 40 MG VIAL IV PUSH ONE (16:15)
[2016-05-19 16:30] LABS: AUTOMATED NEUTROPHIL # 7.7 TH/MM3 (1.8-7.7); BASOPHIL # 0.1 TH/MM3 (0-0.2); BASOPHIL % 0.7 % (0.0-2.0); EOSINOPHIL # 0.2 TH/MM3 (0-0.4); EOSINOPHIL % 1.7 % (0.0-4.0); HEMO FLAGS DIFF FINAL; LYMPH % 14.2 % (9.0-44.0); LYMPHOCYTE # 1.4 TH/MM3 (1.0-4.8); MEAN CELL VOLUME 91.5 FL (80.0-100.0); MEAN CORPUSCULAR HEMOGLOBIN 30.7 PG (27.0-34.0); MEAN CORPUSCULAR HGB CONC 33.6 % (32.0-36.0); MONO % 4.7 % (0.0-8.0); NEUT % 78.7 % (16.0-70.0); PLATELET COUNT 359 TH/MM3 (150-450); RED BLOOD COUNT 2.41 MIL/MM3 (4.00-5.30); WHITE BLOOD COUNT 9.8 TH/MM3 (4.0-11.0)
[2016-05-19 16:37] LABS: BLOOD, URINE NEG (NEG); COMMENT (UR) CULT NOT INDICATED; CULTURE IF INDICATED CULT NOT INDICATED; GLUCOSE,URINE NEG (NEG); KETONE, URINE NEG (NEG); NITRITE,URINE NEG (NEG); SQUAMOUS EPITHELIAL CELL URINE 5 /hpf (0-5); URINE COLOR LIGHT-YELLOW (YELLW/STRAW)
[2016-05-19 16:45] LABS: ALT (GPT) 14 U/L (10-53); ANION GAP 6 MEQ/L (5-15); APTT (PATIENT) 23.4 SEC (24.3-30.1); AST (GOT) 10 U/L (15-37); BICARBONATE 31.4 MEQ/L (21.0-32.0); BLOOD UREA NITROGEN 23 MG/DL (7-18); CHLORIDE 108 MEQ/L (98-107); GLOMERULAR FILTRATION RATE 76 ML/MIN (>89); INTERNATIONAL NORMALIZED RATIO 0.9 RATIO; POTASSIUM 3.3 MEQ/L (3.5-5.1); PROTHROMBIN TIME - PATIENT 10.4 SEC (9.8-11.6); SODIUM (NA) 145 MEQ/L (136-145)
[2016-05-19 16:48] LABS: ALKALINE PHOSPHATASE 40 U/L (45-117); TOTAL BILIRUBIN ADULT 0.3 MG/DL (0.2-1.0)
[2016-05-19] MEDS ORDERED: SODIUM CHLOR 0.9% 250 ML INJ 250 ML IV ONE (17:15)
[2016-05-19] MEDS ORDERED: POTASSIUM CHLORIDE 20 MEQ CONTROLLED RELEASE TAB PO ONE (17:15)
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
[2016-05-19] MEDS ORDERED: ACETAMINOPHEN 325 MG TAB PO PRN (17:30)
[2016-05-19] MEDS ORDERED: BISACODYL 10 MG SUPP RECTAL PRN (17:30)
[2016-05-19] MEDS ORDERED: NALOXONE HCL 0.4 MG/ML AMP IV PRN (17:30)
[2016-05-19] MEDS ORDERED: LORazepam 2 MG/ML VIAL IV PUSH PRN ×4 (17:30)
[2016-05-19] MEDS ORDERED: SODIUM CHLORIDE 0.9% FLUSH 10 ML FLUSH IV FLUSH PRN (17:30)
[2016-05-19] MEDS ORDERED: FLUMAZENIL 0.5 MG/5 ML VIAL IV PUSH PRN (17:30)
[2016-05-19] MEDS ORDERED: LORazepam 2 MG TAB PO PRN (17:30)
[2016-05-19] MEDS ORDERED: LORazepam 1 MG TAB PO PRN (17:30)
[2016-05-19] MEDS: PANTOPRAZOLE INJ 80 MG in SODIUM CHLORIDE 0.9% INJ 100 ML IV SCH (18:08)
[2016-05-19] MEDS: SODIUM CHLOR 0.9% 1000 ML INJ 1,000 ML IV SCH (18:08)
[2016-05-19] MEDS: MORPHINE SULFATE 4 MG/ML INJ IV PUSH PRN (18:55)
[2016-05-19] MEDS: ONDANSETRON HCL 4 MG/2 ML VIAL IVP PRN (18:59)
[2016-05-19 19:14] LABS: CREATINE KINASE 42 U/L (26-192)
[2016-05-19] MEDS: THIAMINE HCL 200 MG/2 ML VIAL IM SCH (22:31)
[2016-05-19] MEDS: SODIUM CHLORIDE 0.9% FLUSH 10 ML FLUSH IV FLUSH SCH (22:31)
[2016-05-19] MEDS ORDERED: GABAPENTIN 300 MG CAP PO ONE (23:15)
[2016-05-20] VITALS (11 sets, daily range): BP systolic 102–138; BP diastolic 55–69; PULSE 60–92; RESP 16–18; TEMP 96–97.9; O2SAT 96–100
[2016-05-20] MEDS: MORPHINE SULFATE 4 MG/ML INJ IV PUSH PRN ×4 (01:12→19:44)
[2016-05-20] MEDS: SODIUM CHLOR 0.9% 1000 ML INJ 1,000 ML IV SCH ×3 (04:52→23:24)
[2016-05-20] MEDS: PANTOPRAZOLE INJ 80 MG in SODIUM CHLORIDE 0.9% INJ 100 ML IV SCH ×2 (04:52→19:44)
[2016-05-20 07:32] LABS: AUTOMATED NEUTROPHIL # 5.2 TH/MM3 (1.8-7.7); BASOPHIL # 0.1 TH/MM3 (0-0.2); BASOPHIL % 0.8 % (0.0-2.0); EOSINOPHIL # 0.2 TH/MM3 (0-0.4); EOSINOPHIL % 2.5 % (0.0-4.0); HEMATOCRIT 21.1 % (35.0-46.0); HEMO FLAGS DIFF FINAL; LYMPH % 26.8 % (9.0-44.0); LYMPHOCYTE # 2.2 TH/MM3 (1.0-4.8); MEAN CORPUSCULAR HEMOGLOBIN 29.4 PG (27.0-34.0); MEAN CORPUSCULAR HGB CONC 34.2 % (32.0-36.0); MONO % 6.4 % (0.0-8.0); NEUT % 63.5 % (16.0-70.0); PLATELET COUNT 208 TH/MM3 (150-450); RED BLOOD COUNT 2.46 MIL/MM3 (4.00-5.30); RED CELL DISTRIBUTION WIDTH 16.3 % (11.6-17.2); WHITE BLOOD COUNT 8.1 TH/MM3 (4.0-11.0)
[2016-05-20 07:40] LABS: PROTHROMBIN TIME - PATIENT 10.8 SEC (9.8-11.6)
[2016-05-20 08:13] LABS: ANION GAP 6 MEQ/L (5-15); BICARBONATE 24.8 MEQ/L (21.0-32.0); BLOOD UREA NITROGEN 39 MG/DL (7-18); CHLORIDE 114 MEQ/L (98-107); GLOMERULAR FILTRATION RATE 106 ML/MIN (>89); LDL CHOLESTEROL 26 MG/DL (0-99); POTASSIUM 3.7 MEQ/L (3.5-5.1); SODIUM (NA) 145 MEQ/L (136-145)
[2016-05-20 08:14] LABS: CREATINE KINASE 94 U/L (26-192)
[2016-05-20] MEDS: THIAMINE HCL 200 MG/2 ML VIAL IM SCH (08:44)
[2016-05-20] MEDS: SODIUM CHLORIDE 0.9% FLUSH 10 ML FLUSH IV FLUSH SCH ×2 (08:51→21:00)
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
--- NOTE | 2016-05-20 09:48 | PD.CONS ---
HPI History of Present Illness This is a 40 year old female with a history of anemia and gastritis who came to the ER for evaluation of shortness of breath, generalized weakness, and ringing in her ears. She reports that her symptoms began about 2 weeks ago. On admission she was found to be anemic with a hemoglobin of 7.2/21.1. She states that last week she did have some intermittent nausea and vomiting but denies any hematemesis. She also has frequent heartburn. She was taking Protonix at one time, but states that she is no longer on this and therefore takes Tums as needed. She also takes a couple of ibuprofen and a couple of Excedrin on a daily basis for chronic neck and back pain as well as headaches. She denies any abdominal pain. She reports that she did have a couple of episodes of black tarry stools last week and that she last had a bowel movement yesterday and it was very dark in color although not black. She last had an EGD (03/03/16 ) and this revealed gastritis in the antrum, normal duodenum, irregular Z line, retroflex views revealed a hiatal hernia. Pathology revealed small intestinal mucosa without significant histopathologic, reactive/chemical gastropathy in the background of mild chronic gastritis, negative for helicobacter pylori, gastric type mucosa with moderate chronic, focally acute inflammation, no squamous mucosa present. Of note, she was previously evaluated with colonoscopy in 2014 and this revealed normal colon. She then had a SBFT in 2014 which was unremarkable. PFSH Past Medical History Gastritis History of duodenal bulb ulcers Chronic anemia Chronic neck and back pain Headaches Fibromyalgia Arthritis OCD History of a herniated disc Claustrophobia Attention Deficit disorder GERD Anemia Anxiety Alcohol abuse Hypertension Past Surgical History Carpal tunnel surgery EGD Colonoscopy Coded Allergies: Percocet (Verified Allergy, Severe, Nausea/Vomiting, 05/19/16) Medications Allergies Coded Allergies Type Severity Reaction Last Updated Verified Percocet Allergy Severe Nausea/Vomiting 05/19/16 Yes Active Scripts Medications Dose Route/Sig Days Date Category No Active Prescriptions or Reported Medications Rx Family History Reports that her paternal grandmother had esophageal and liver cancer Social History Smokes one pack of cigarettes daily Told me she drinks a few drinks per weeks. According to EMR, she drinks five shots of Fireball daily Denies illicit drug use. Review of Systems Constitutional: COMPLAINS OF: Fatigue, Dizziness, DENIES: Fever, Weight loss, Chills, Change in appetite Respiratory: DENIES: Cough Cardiovascular: DENIES: Chest pain Gastrointestinal: COMPLAINS OF: Black stools, Nausea, Vomiting, Swelling of Abdomen, DENIES: Abdominal pain, Bloody stools, Constipation, Diarrhea, Hematemesis Musculoskeletal: COMPLAINS OF: Joint pain, Back pain, Neck pain Integumentary: DENIES: Abnormal pigmentation Hematologic/lymphatic: DENIES: Bruising Neurologic: COMPLAINS OF: Headache Psychiatric: COMPLAINS OF: Anxiety, DENIES: Confusion GI Exam Vitals I&O Vital Signs Date Time Temp Pulse Resp B/P Pulse Ox O2 Delivery O2 Flow Rate FiO2 05/20/16 08:00 96.0 63 17 138/68 99 05/20/16 04:57 97.6 67 16 114/59 98 05/20/16 04:56 97.6 67 16 114/59 98 05/20/16 02:02 97.7 73 18 121/59 97 05/20/16 01:46 97.7 78 18 115/59 98 05/20/16 01:45 97.7 78 18 115/59 98 05/20/16 00:00 97.5 92 16 102/55 96 05/19/16 22:37 97.3 79 18 99/55 98 05/19/16 22:03 98.1 97 18 105/53 97 05/19/16 20:00 98.1 88 16 102/53 94 05/19/16 19:00 18 05/19/16 18:10 100 16 123/68 97 05/19/16 16:33 84 122/73 91 121/59 105 128/60 05/19/16 16:23 98 Room Air 05/19/16 15:50 17 05/19/16 15:16 98.5 89 16 147/78 100 Room Air I/O 05/19/16 05/19/16 05/19/16 05/20/16 05/20/16 05/20/16 07:00 15:00 23:00 07:00 15:00 23:00 Intake Total 1814 ml Balance 1814 ml Intake IV Total 1124 ml Packed Cells 690 ml # Voids 2 3 # Bowel Movements 0 0 Laboratory Test 05/19/16 05/20/16 05/20/16 16:19 06:35 06:55 White Blood Count 9.8 TH/MM3 8.1 TH/MM3 Red Blood Count 2.41 MIL/MM3 2.46 MIL/MM3 Hemoglobin 7.4 GM/DL 7.2 GM/DL Hematocrit 22.0 % 21.1 % Mean Corpuscular Volume 91.5 FL 86.0 FL Mean Corpuscular Hemoglobin 30.7 PG 29.4 PG Mean Corpuscular Hemoglobin 33.6 % 34.2 % Concent Red Cell Distribution Width 15.0 % 16.3 % Platelet Count 359 TH/MM3 208 TH/MM3 Mean Platelet Volume 7.7 FL 7.8 FL Neutrophils (%) (Auto) 78.7 % 63.5 % Lymphocytes (%) (Auto) 14.2 % 26.8 % Monocytes (%) (Auto) 4.7 % 6.4 % Eosinophils (%) (Auto) 1.7 % 2.5 % Basophils (%) (Auto) 0.7 % 0.8 % Neutrophils # (Auto) 7.7 TH/MM3 5.2 TH/MM3 Lymphocytes # (Auto) 1.4 TH/MM3 2.2 TH/MM3 Monocytes # (Auto) 0.5 TH/MM3 0.5 TH/MM3 Eosinophils # (Auto) 0.2 TH/MM3 0.2 TH/MM3 Basophils # (Auto) 0.1 TH/MM3 0.1 TH/MM3 CBC Comment DIFF FINAL DIFF FINAL Differential Comment Prothrombin Time 10.4 SEC 10.8 SEC Prothromb Time International 0.9 RATIO 1.0 RATIO Ratio Activated Partial 23.4 SEC Thromboplast Time Urine Color LIGHT-YELLOW Urine Turbidity CLEAR Urine pH 7.0 Urine Specific [place] 1.015 Urine Protein NEG mg/dL Urine Glucose (UA) NEG mg/dL Urine Ketones NEG mg/dL Urine Occult Blood NEG Urine Nitrite NEG Urine Bilirubin NEG Urine Urobilinogen LESS THAN 2.0 MG/DL Urine Leukocyte Esterase NEG Urine RBC 1 /hpf Urine WBC 1 /hpf Urine Squamous Epithelial 5 /hpf Cells Microscopic Urinalysis Comment CULT NOT INDICATED Sodium Level 145 MEQ/L 145 MEQ/L Potassium Level 3.3 MEQ/L 3.7 MEQ/L Chloride Level 108 MEQ/L 114 MEQ/L Carbon Dioxide Level 31.4 MEQ/L 24.8 MEQ/L Anion Gap 6 MEQ/L 6 MEQ/L Blood Urea Nitrogen 23 MG/DL 39 MG/DL Creatinine 0.83 MG/DL 0.62 MG/DL Estimat Glomerular Filtration 76 ML/MIN 106 ML/MIN Rate Random Glucose 91 MG/DL 79 MG/DL Calcium Level 10.1 MG/DL 8.5 MG/DL Total Bilirubin 0.3 MG/DL Aspartate Amino Transf 10 U/L (AST/SGOT) Alanine Aminotransferase 14 U/L (ALT/SGPT) Alkaline Phosphatase 40 U/L Total Creatine Kinase 42 U/L 94 U/L Troponin I LESS THAN 0.02 0.02 NG/ML NG/ML Total Protein 5.7 GM/DL Albumin 3.0 GM/DL Lipase 140 U/L Ethyl Alcohol Level LESS THAN 3 MG/DL Blood Type O NEGATIVE Antibody Screen NEGATIVE Crossmatch Leukocyte-Reduced Red Blood Cells Blood Bank Comment Triglycerides Level 131 MG/DL Cholesterol Level 90 MG/DL LDL Cholesterol 26 MG/DL HDL Cholesterol 38.0 MG/DL Cholesterol/HDL Ratio 2.36 RATIO Free Thyroxine 0.70 NG/DL Thyroid Stimulating Hormone 0.917 uIU/ML 3rd Gen Physical Examination HEENT: Normocephalic; atraumatic; no jaundice. CHEST: CTA CARDIAC: RRR. ABDOMEN: Soft, nondistended, nontender; no hepatosplenomegaly; bowel sounds are present in all four quadrants. EXTREMITIES: No clubbing, cyanosis, or edema. SKIN: Normal; no rash; no jaundice. BRIDGE MAINTAINER: No focal deficits; alert and oriented times three. Assessment and Plan Plan ASSESSMENT: - Severe anemia with recent n/v and melena. HH 7.2/21.1 on admission. She reports severe fatigue, weakness, ringing in ears x 2 weeks. She had nausea/ vomiting last week (no hematemesis) and black tarry stool 5 days ago, with dark stool yesterday. She has frequent heartburn and takes TUMS. She does take Ibuprofen and Excedrin daily. EGD () and this revealed gastritis in the antrum, normal duodenum, irregular Z line, retroflex views revealed a hiatal hernia. Pathology revealed small intestinal mucosa without significant histopathologic , reactive/chemical gastropathy in the background of mild chronic gastritis, negative for helicobacter pylori, gastric type mucosa with moderate chronic, focally acute inflammation, no squamous mucosa present. Of note, she was previously evaluated with colonoscopy in 2014 and this revealed normal colon. She then had a SBFT in 2014 which was unremarkable. NPO. Protonix Gtt. - GERD. PPI. PLAN: - Plan for egd today - Obtain consents - NPO - Protonix Gtt - Monitor HH - Transfuse as necessary - Supportive care - Further recommendations to follow based on results of above. - Pt seen and examined by Dr. Triplett and myself and this note is written on his behalf Felecia Diaz May 20, 2016 09:48
[2016-05-20] MEDS ORDERED: PROPOFOL 200 MG/20 ML AMP IV ONE (12:00)
--- NOTE | 2016-05-20 12:11 | GIPROC ---
[facility] [address] [facility]. [facility], [address] EGD PROCEDURE REPORT EXAM DATE: 05/20/2016 PATIENT NAME: Belgica Howard MR #: [id number] BIRTHDATE: 1975 ATTENDING: Katerin Triplett MD ORDER #: [id number] LOADING DOCK HELPER: Juan Yo and Janeth Covington STATUS: inpatient INDICATIONS: The patient is a 40 yr old female here for an EGD due to anemia and melena PROCEDURE PERFORMED: EGD w/ biopsy MEDICATIONS: None and Per Anesthesia. TOPICAL ANESTHETIC: none CONSENT: The patient understands the risks and benefits of the procedure and understands that these risks include, but are not limited to: sedation, allergic reaction, infection, perforation and/or bleeding. Alternative means of evaluation and treatment include, among others: physical exam, x-rays, and/or surgical intervention. The patient elects to proceed with this endoscopic procedure. medical equipment was checked for proper function. Hand hygiene and appropriate measures for infection prevention was taken. After the risks, benefits and alternatives of the procedure were thoroughly explained, Informed consent was verified, confirmed and timeout was successfully executed by the treatment team. The patient was anesthetized with topical anesthesia and the Pentax [id number] endoscope was introduced through the mouth and advanced to the second portion of the duodenum. Retroflexed views revealed no abnormalities The gastroscope was then slowly withdrawn and removed. Two ulcers in the antrum, no active bleed, 1x1 cm and 1x.0.7 cm Bx done. The endoscopy was otherwise normal. ADVERSE EVENTS: There were no complications. IMPRESSIONS: 1. Two ulcers in the antrum, no active bleed, 1x1 cm and 1x.0.7 cm Bx done 2. Normal endoscopy otherwise 3. Retroflexed views revealed no abnormalities RECOMMENDATIONS: Await biopsy results. Biopsy results will not be ready for 7-10 days. If you don't hear from us in two weeks, call our office for biopsy results. PATIENT CONDITION: stable DISPOSITION: Observation REPEAT EXAM: Return 2 months EGD Katerin Triplett MD eSigned: Katerin Triplett MD 05/20/2016 12:11 PM cc: PATIENT NAME: Belgica Howard MR#: [id number]
[2016-05-20] MEDS ORDERED: DO NOT ADM ANY ANTICOAGULANT DRUGS PRN (14:00)
[2016-05-20 18:10] LABS: HEMOGLOBIN A1a 1.4 %; HEMOGLOBIN A1b 1.6 %; HEMOGLOBIN Ao 85.7 %; HEMOGLOBIN LA1C 1.9 %; HEMOGLOBIN P3 3.9 %
[2016-05-20] MEDS: ONDANSETRON HCL 4 MG/2 ML VIAL IVP PRN (19:24)
[2016-05-21] VITALS (11 sets, daily range): BP systolic 100–142; BP diastolic 57–79; PULSE 57–87; RESP 12–19; TEMP 95.3–97.7; O2SAT 94–100
[2016-05-21] MEDS: MORPHINE SULFATE 4 MG/ML INJ IV PUSH PRN ×3 (00:29→09:09)
[2016-05-21 04:26] LABS: AUTOMATED NEUTROPHIL # 4.6 TH/MM3 (1.8-7.7); BASOPHIL # 0.1 TH/MM3 (0-0.2); BASOPHIL % 0.7 % (0.0-2.0); EOSINOPHIL # 0.3 TH/MM3 (0-0.4); EOSINOPHIL % 4.3 % (0.0-4.0); HEMO FLAGS DIFF FINAL; LYMPH % 30.6 % (9.0-44.0); LYMPHOCYTE # 2.5 TH/MM3 (1.0-4.8); MEAN CELL VOLUME 87.4 FL (80.0-100.0); MEAN CORPUSCULAR HEMOGLOBIN 29.2 PG (27.0-34.0); MEAN CORPUSCULAR HGB CONC 33.4 % (32.0-36.0); MONO % 8.2 % (0.0-8.0); NEUT % 56.2 % (16.0-70.0); PLATELET COUNT 229 TH/MM3 (150-450); RED BLOOD COUNT 2.52 MIL/MM3 (4.00-5.30); RED CELL DISTRIBUTION WIDTH 17.3 % (11.6-17.2); WHITE BLOOD COUNT 8.1 TH/MM3 (4.0-11.0)
[2016-05-21 04:36] LABS: BICARBONATE 25.7 MEQ/L (21.0-32.0); MAGNESIUM 1.6 MG/DL (1.5-2.5); POTASSIUM 3.6 MEQ/L (3.5-5.1)
[2016-05-21 04:49] LABS: CALCIUM-PROTEIN CORRECTED 8.7 MG/DL (8.5-10.1)
[2016-05-21] MEDS: PANTOPRAZOLE INJ 80 MG in SODIUM CHLORIDE 0.9% INJ 100 ML IV SCH (06:16)
--- NOTE | 2016-05-21 06:58 | EKG ---
Date Performed: 05/19/2016 Time Performed: 16:39:29 PTAGE: 40 years EKG: Sinus rhythm MINIMAL VOLTAGE CRITERIA FOR LVH, CONSIDER NORMAL VARIANT NONSPECIFIC T-WAVE ABNORMALITY BORDERLINE ECG Compared to PREVIOUS TRACING , LVH criteria has increased. PREVIOUS TRACIN03/02/2016 05.04 DOCTOR: Onofre Raymundo Interpretating Date/Time 05/21/2016 06:56:45
[2016-05-21] MEDS: SODIUM CHLORIDE 0.9% FLUSH 10 ML FLUSH IV FLUSH SCH ×2 (09:00→20:40)
[2016-05-21] MEDS: SODIUM CHLOR 0.9% 1000 ML INJ 1,000 ML IV SCH (09:09)
[2016-05-21] MEDS: THIAMINE HCL 200 MG/2 ML VIAL IM SCH (09:09)
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
[2016-05-21] MEDS: PANTOPRAZOLE SODIUM 40 MG VIAL IV PUSH SCH ×2 (11:18→20:40)
[2016-05-21] MEDS: SUCRALFATE 1 GM/10 ML CUP PO SCH ×3 (11:18→20:37)
[2016-05-21] MEDS: GABAPENTIN 100 MG CAP PO SCH ×2 (11:18→16:19)
[2016-05-21 12:13] LABS: BETA HCG QUANT LESS THAN 1 MIU/ML (0-5)
[2016-05-21] MEDS ORDERED: POTASSIUM CHLORIDE 20 MEQ CONTROLLED RELEASE TAB PO ONE (16:15)
[2016-05-21] MEDS: ACETAMINOPHEN/HYDROcodone 325 MG/5 MG TAB PO PRN ×2 (16:19→20:37)
[2016-05-21] MEDS: MAGNESIUM SULFATE 1 GM PREMIX 100 ML IV SCH ×2 (16:43→17:39)
--- NOTE | 2016-05-21 17:10 | HHI.GIFU ---
Subjective Remarks Pt sitting up in bed, watching TV. She says her epigastric pain is unchanged. She is eating. No n/v. She has not had a BM in 3 days. Objective Vitals I&O Vital Signs Date Time Temp Pulse Resp B/P Pulse Ox O2 Delivery O2 Flow Rate FiO2 05/21/16 16:00 97.2 57 12 142/70 99 05/21/16 14:03 97.3 72 16 110/58 98 05/21/16 13:44 97.7 74 17 127/70 98 05/21/16 12:00 96.9 60 14 126/74 100 05/21/16 10:51 97.2 76 17 107/67 100 05/21/16 10:28 97.6 61 16 117/69 99 05/21/16 08:00 95.3 61 16 105/57 94 05/21/16 04:00 96.6 74 16 100/58 98 05/21/16 00:00 97.1 65 16 110/70 95 05/20/16 20:00 65 05/20/16 20:00 97.9 69 16 107/63 99 I/O 05/20/16 05/20/16 05/20/16 05/21/16 05/21/16 05/21/16 07:00 15:00 23:00 07:00 15:00 23:00 Intake Total 1814 ml 1312 ml 925 ml 600 ml 1083 ml 287 ml Balance 1814 ml 1312 ml 925 ml 600 ml 1083 ml 287 ml Intake Oral 350 ml 420 ml IV Total 1124 ml 762 ml 505 ml 600 ml 776 ml Packed Cells 690 ml 307 ml 287 ml Other 200 ml # Voids 3 4 4 # Bowel Movements 0 0 0 Laboratory Laboratory Tests Test 05/21/16 05/21/16 03:17 10:19 White Blood Count 8.1 Red Blood Count 2.52 Hemoglobin 7.4 Hematocrit 22.0 Mean Corpuscular Volume 87.4 Mean Corpuscular Hemoglobin 29.2 Mean Corpuscular Hemoglobin 33.4 Concent Red Cell Distribution Width 17.3 Platelet Count 229 Mean Platelet Volume 8.1 Neutrophils (%) (Auto) 56.2 Lymphocytes (%) (Auto) 30.6 Monocytes (%) (Auto) 8.2 Eosinophils (%) (Auto) 4.3 Basophils (%) (Auto) 0.7 Neutrophils # (Auto) 4.6 Lymphocytes # (Auto) 2.5 Monocytes # (Auto) 0.7 Eosinophils # (Auto) 0.3 Basophils # (Auto) 0.1 CBC Comment DIFF FINAL Differential Comment Sodium Level 144 Potassium Level 3.6 Chloride Level 113 Carbon Dioxide Level 25.7 Anion Gap 5 Blood Urea Nitrogen 17 Creatinine 0.70 Estimat Glomerular Filtration 92 Rate Random Glucose 88 Calcium Level 7.2 Protein Corrected Calcium 8.7 Phosphorus Level 2.1 Magnesium Level 1.6 Total Protein 4.5 Human Chorionic Gonadotropin, LESS THAN 1 Quant Blood Type O NEGATIVE Crossmatch Leukocyte-Reduced Red Blood Cells Blood Bank Comment Physical Exam HEENT: EOMI; atraumatic; no jaundice NECK: Neck is supple CHEST: Chest is clear to auscultation and percussion. CARDIAC: Regular rate and rhythm with no murmur gallop or rubs. ABDOMEN: Soft, nondistended, mild lower abd TTP; no hepatosplenomegaly; bowel sounds are present in all four quadrants. EXTREMITIES: No clubbing, cyanosis, or edema. SKIN: Normal; no rash; no jaundice. PHOTO OPTICS TECHNICIAN: No focal deficits; alert and oriented times three. Assessment and Plan Plan ASSESSMENT: - Severe anemia with recent n/v and melena. HH 7.4, 22.0. s/p EGD 05-20-16---> found 2 ulcers antrum, no active bleed, normal otherwise. She reports severe fatigue, weakness, ringing in ears x 2 weeks. She had nausea/vomiting last week (no hematemesis) and black tarry stool 5 days ago, with dark stool 2 d ago. She has frequent heartburn and takes TUMS. She does take Ibuprofen and Excedrin daily. EGD (03/03/16) and this revealed gastritis in the antrum, normal duodenum, irregular Z line, retroflex views revealed a hiatal hernia. Pathology revealed small intestinal mucosa without significant histopathologic , reactive/chemical gastropathy in the background of mild chronic gastritis, negative for helicobacter pylori, gastric type mucosa with moderate chronic, focally acute inflammation, no squamous mucosa present. Of note, she was previously evaluated with colonoscopy in 2014 and this revealed normal colon. She then had a SBFT in 2014 which was unremarkable.JUANITA. PPI. hematology has been consulted for anemia. - GERD. PPI. PLAN: - JUANITA - cont PPI - Monitor HH - Transfuse as necessary - Supportive care - repeat EGD 2months - Pt seen and examined by Dr. Triplett and myself and this note is written on his behalf Milagro Sánchez May 21, 2016 17:10
[2016-05-22] VITALS: BP 124/81; PULSE 65; RESP 21; TEMP 96; O2SAT 100
[2016-05-22] MEDS: ACETAMINOPHEN/HYDROcodone 325 MG/5 MG TAB PO PRN ×6 (01:08→22:49)
[2016-05-22] MEDS ORDERED: GABAPENTIN 100 MG CAP PO ONE (02:45)
[2016-05-22] MEDS: SUCRALFATE 1 GM/10 ML CUP PO SCH ×4 (05:20→20:47)
[2016-05-22 06:59] LABS: HEMATOCRIT 28.4 % (35.0-46.0)
[2016-05-22 08:00] VITALS: BP 142/67; PULSE 60; RESP 12; TEMP 96.4; O2SAT 98
[2016-05-22] MEDS: GABAPENTIN 100 MG CAP PO SCH ×3 (08:55→16:43)
[2016-05-22] MEDS: SODIUM CHLORIDE 0.9% FLUSH 10 ML FLUSH IV FLUSH SCH ×2 (08:55→20:51)
[2016-05-22] MEDS: THIAMINE HCL 200 MG/2 ML VIAL IM SCH (08:57)
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
--- NOTE | 2016-05-22 11:49 | HHI.GIFU ---
Subjective Remarks Patient is resting in bed, denies melena, hematochezia , nausea or vomiting. She does have mild abdomen cramps. She states she takes NSAIDs all the time for many years for back pain and doesn't know what else to take Objective Vitals I&O Vital Signs Date Time Temp Pulse Resp B/P Pulse Ox O2 Delivery O2 Flow Rate FiO2 05/22/16 08:00 96.4 60 12 142/67 98 05/22/16 00:00 96.0 65 21 124/81 100 05/21/16 20:00 96.8 87 19 129/79 98 05/21/16 19:56 74 05/21/16 16:00 97.2 57 12 142/70 99 05/21/16 14:03 97.3 72 16 110/58 98 05/21/16 13:44 97.7 74 17 127/70 98 05/21/16 12:00 96.9 60 14 126/74 100 I/O 05/21/16 05/21/16 05/21/16 05/22/16 05/22/16 05/22/16 07:00 15:00 23:00 07:00 15:00 23:00 Intake Total 600 ml 1083 ml 527 ml 360 ml Balance 600 ml 1083 ml 527 ml 360 ml Intake Oral 240 ml 360 ml IV Total 600 ml 776 ml Packed Cells 307 ml 287 ml # Voids 2 2 # Bowel Movements 0 0 Laboratory Laboratory Tests Test 05/22/16 06:09 Hemoglobin 10.0 Hematocrit 28.4 Physical Exam HEENT: EOMI; atraumatic; no jaundice NECK: Neck is supple CHEST: Chest is clear to auscultation and percussion. CARDIAC: Regular rate and rhythm with no murmur gallop or rubs. ABDOMEN: Soft, nondistended, mild lower abd TTP; no hepatosplenomegaly; bowel sounds are present in all four quadrants. EXTREMITIES: No clubbing, cyanosis, or edema. SKIN: Normal; no rash; no jaundice. ENGINEERING PATTERNMAKER: No focal deficits; alert and oriented times three. Assessment and Plan Plan ASSESSMENT: - Gastric ulcers- HH 10.0/28.4. s/p EGD 05-20-16--->found 2 ulcers antrum, no active bleed, normal otherwise. Bx showed focally ulcerated gastric mucosal bx with associated focal severe glandular atypia, negative for h-pylori A dysplastic or neoplastic condition cannot be excluded , suggest close follow up colonoscopy in 2014 and this revealed normal colon. She then had a SBFT in 2014 which was unremarkable.PPI. - GERD. PPI. PLAN: - JUANITA - cont PPI - Avoid NSAIDs, can Tylenol for pain - EGD in 2 months - Stressed with patient the importance of close f/u with GI due to bx results and EGD findings, she verbalized understanding - F/u with GI in 2 weeks - Okay to DC from GI stand point - Pt seen and examined by Dr. Triplett and myself and this note is written on his behalf Kishore Gastelum May 22, 2016 11:48
[2016-05-22 12:00] VITALS: BP 112/67; PULSE 77; RESP 18; TEMP 96.8; O2SAT 98
[2016-05-22] MEDS: PANTOPRAZOLE SODIUM 40 MG VIAL IV PUSH SCH ×2 (13:01→22:49)
[2016-05-22 16:00] VITALS: BP 128/68; PULSE 70; PULSE 76; RESP 20; TEMP 98.9; O2SAT 98
[2016-05-22 20:00] VITALS: BP 101/55; PULSE 61; RESP 18; TEMP 97.4; O2SAT 100
[2016-05-22 21:15] VITALS: PULSE 62
[2016-05-23] VITALS (7 sets, daily range): BP systolic 107–126; BP diastolic 60–68; PULSE 54–79; RESP 17–19; TEMP 96.9–97.8; O2SAT 95–99
[2016-05-23] MEDS: ACETAMINOPHEN/HYDROcodone 325 MG/5 MG TAB PO PRN ×4 (04:24→20:33)
[2016-05-23] MEDS: SUCRALFATE 1 GM/10 ML CUP PO SCH ×4 (04:24→20:33)
[2016-05-23] MEDS: THIAMINE HCL 200 MG/2 ML VIAL IM SCH (08:24)
[2016-05-23] MEDS: GABAPENTIN 100 MG CAP PO SCH ×3 (08:25→17:09)
[2016-05-23] MEDS: SODIUM CHLORIDE 0.9% FLUSH 10 ML FLUSH IV FLUSH SCH ×2 (08:25→20:34)
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
--- NOTE | 2016-05-23 10:34 | MB ---
cc: SP SUERO DATE OF CONSULTATION: 05/23/2016 Date of : 1975 REASON FOR CONSULTATION Patient with a history of iron deficiency anemia, presents with severe acute anemia. HISTORY OF PRESENT ILLNESS: The patient is a 40-year-old female with a past medical history of iron deficiency anemia and gastritis, as well as alcohol abuse, who presents to the emergency department with worsening shortness of breath, generalized weakness. She was found to have a hemoglobin of 7.2. The patient has been seen in the past by the hematology service. She was found to be iron deficient. She has received iron infusions in the past. The patient has a history of menorrhagia and it was thought that this was partially responsible for iron deficiency anemia. The patient does not have outpatient physician follow up due to insurance issues. She has never seen a primary care physician. The patient has been transfused 4 units of packed red blood cells since her admission. She has been seen by gastroenterology. Her last EGD was in February 2016 which revealed gastritis in the antrum. Duodenum was normal. There was irregular Z-line. There was a hiatal hernia. There were findings of reactive / chemical gastropathy in the background of mild chronic gastritis. The patient regularly takes NSAID. She has not noticed any bright red blood per rectum or melena. She denies any nose bleeds, gum bleeds. She does not have any fever or chills. No other constitutional B symptoms. REVIEW OF SYSTEMS A comprehensive 14-point review of systems was completed which is negative except as described in the HPI. PAST MEDICAL HISTORY 1. History of gastritis. 2. Iron deficiency anemia 3. Menorrhagia 4. Alcohol abuse 5. Fibromyalgia 6. Herniated disc. 7. Attention deficit disorder. 8. Gastroesophageal reflux disease. 9. Anxiety. 10. Hypertension. PAST SURGICAL HISTORY: 1. Carpal tunnel surgery. 2. EGD. 3. Colonoscopy FAMILY HISTORY: Reviewed, noncontributory. SOCIAL HISTORY: She is homeless. She denies smoking cigarettes. She drinks alcohol occasionally. She says that she used to drink heavily in the past. No illicit drug use. ALLERGIES: PERCOCET OUTPATIENT MEDICATIONS: 1. Aleve. 2. Ibuprofen INPATIENT MEDICATIONS: 1. [place] 5/325. 2. Neurontin 100 mg p.o. t.i.d. 3. Pantoprazole 40 mg q.12 h. 4. Carafate 1 gram p.o. ac hs. 5. Thiamine 100 mg IM daily. 6. Zofran 4 mg IV q.6 hours. 7. Dulcolax 10 mg p.r.n. 8. Ativan 1 milligrams p.o. q4 hours p.r.n. PHYSICAL EXAMINATION Vital signs: Blood pressure is 101/55, pulse is 60s, temperature is 97.4, O2 sats are 100. GENERAL: Thin-appearing female in no apparent distress. HEENT: Pupils are equal, round, reactive to light. EOMI. No oral thrush. No oral lesions. NECK: Neck is supple. No JVD, no bruits. No lymphadenopathy. CHEST: Chest is clear to auscultation bilaterally. CARDIAC: S1-S2 regular rate and rhythm. ABDOMEN: Abdomen is soft, nontender, nondistended. Bowel sounds are present. EXTREMITIES: Without any edema, erythema or cyanosis. SKIN: Without any petechiae, lesion or bruises. NEUROLOGIC: No focal deficits. PSYCHIATRIC: Mood and affect is appropriate. LABORATORY DATA WBC 8.1, hemoglobin is 10, platelet count is 229. Serum chemistries show sodium of 144, potassium 3.6, CO2 25.7, BUN 17, creatinine 0.7, GFR 92, calcium is 7.2, albumin is 3. IMAGING STUDIES None. ASSESSMENT AND PLAN: This is a 40-year-old female with a past medical history of alcohol abuse, menorrhagia, iron deficiency anemia who presents to the emergency department with shortness of breath and progressive weakness, and was found to have severe anemia. 1. Severe anemia with a hemoglobin of 7.4, her MCV was 91.5. She was found to be iron deficient in the past and has received iron infusion. She denies any bright red blood per rectum or melena. The patient has been transfused four units of packed red blood cells and a hemoglobin on 05/22/2016 is 10. Iron studies would be inaccurate at this point since she has received blood transfusion. We need to make sure that she is not having any GI bleeding. I would defer this to gastroenterology. If her hemoglobin remains stable, she can be discharged home. She would need to see a motor vehicle assembly supervisor to address her menorrhagia. We will give her Iron infusion. Check LDH, Haptoglobin and Direct Gabriele test. Check Hepatitis Panel. 2. Tobacco and Alcohol abuse counseling was done. Thank you for allowing me to participate in the care of this patient. I will continue to follow this patient along. MD TORI House/MERLYN /9:36 AM /10:20 AM JENNIE
[2016-05-23 10:47] LABS: HEMATOCRIT 32.9 % (35.0-46.0); REVIEW FLAG FINAL
[2016-05-23] MEDS ORDERED: IRON SUCROSE INJ 200 MG in SODIUM CHLORIDE 0.9% INJ 100 ML IV ONE (11:00)
[2016-05-23 11:17] LABS: BICARBONATE 26.6 MEQ/L (21.0-32.0); MAGNESIUM 2.2 MG/DL (1.5-2.5); POTASSIUM 3.7 MEQ/L (3.5-5.1)
[2016-05-23] MEDS: PANTOPRAZOLE SODIUM 40 MG VIAL IV PUSH SCH (11:24)
[2016-05-23 11:38] LABS: LDH SERUM 195 U/L (84-246)
[2016-05-23 11:41] LABS: CALCIUM-PROTEIN CORRECTED 7.9 MG/DL (8.5-10.1)
[2016-05-24 01:01] VITALS: BP 115/55; PULSE 62; RESP 18; TEMP 96.5; O2SAT 96
[2016-05-24] MEDS: PANTOPRAZOLE SODIUM 40 MG VIAL IV PUSH SCH ×2 (01:54→11:28)
[2016-05-24] MEDS: ACETAMINOPHEN/HYDROcodone 325 MG/5 MG TAB PO PRN ×3 (02:13→14:37)
[2016-05-24] MEDS: SUCRALFATE 1 GM/10 ML CUP PO SCH ×3 (04:11→16:49)
[2016-05-24 04:50] VITALS: BP 102/59; PULSE 79; RESP 18; TEMP 96.4; O2SAT 97
[2016-05-24 08:00] VITALS: BP 105/55; PULSE 52; PULSE 57; RESP 14; TEMP 96.6; O2SAT 96
[2016-05-24] MEDS: THIAMINE HCL 200 MG/2 ML VIAL IM SCH (09:00)
[2016-05-24] MEDS: SODIUM CHLORIDE 0.9% FLUSH 10 ML FLUSH IV FLUSH SCH (09:03)
[2016-05-24] MEDS: GABAPENTIN 100 MG CAP PO SCH ×3 (09:03→17:46)
[2016-05-24] MEDS ORDERED: CALCIUM GLUCONATE 10% 1 GM/10 ML VIAL IV PUSH ONE (10:00)
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
[2016-05-24] MEDS ORDERED: CALCIUM GLUCONATE INJ 1 GM in SODIUM CHLORIDE 0.9% INJ 100 ML IV ONE (11:00)
[2016-05-24 12:00] VITALS: BP 127/70; PULSE 50; RESP 12; TEMP 97; O2SAT 98
--- NOTE | 2016-05-24 13:04 | PD.CONS ---
HPI Chief Complaint Abnormal uterine bleeding / anemia Date Seen: May 24, 2016 Travel History International Travel<30 Days: No Contact w/Intl Traveler<30Days: No Known Affected Area: No History of Present Illness HPI Patient is a 40-year-old white female G0 currently having abnormal uterine bleeding. She is in the hospital for anemia workup and GI bleed. She has had a recent EGD which showed 2 small ulcers and biopsies were done and no large bowels study to date. She did have heme-positive stool and she describes part black stools for some time she does not know how long. Patient states that for most of her adult life she has had it irregular periods with mostly 2 periods a month and at times periods were heavy and that she'll typically use 5 tampons a day when she is on her period would last 7-8 days every time and this is on average going on every 2 weeks. She is been in the hospital for recurrent anemia workups and blood transfusions. These received blood transfusions this admission and she states when she started getting a blood transfusion she started bleeding again last period stopped about a week prior to admission and when she got the blood transfusion she started bleeding again. She states that she been tried on control pills in the past to control her bleeding but she never can remember to take them and so they have never worked for her and now that she is a chronic smoker and over 34, control pills are not an option for her. At this point I believe her medicine team has concluded that her anemia is not a result of GI bleeding but it may be that she still needs lower bowel evaluation. 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 Social History Alcohol Use: No Tobacco Use: Yes Substance Abuse: No Allergies-Medications (Allergen,Severity, Reaction): Coded Allergies: Percocet (Verified Allergy, Severe, Nausea/Vomiting, 05/19/16) Home Meds Discontinued Scripts Omeprazole-Sodium Bicarbonate 40-1,100 Mg Cap1 Cap PO DAILY #30 CAP Ref 0 Prov:Garett Keita MD 03/04/16 Review of Systems General / Constitutional: No: Fever, Weight Gain, Chills, Other Eyes: No: Diploplia, Blurred Vision, Visual changes, Pain, Photophobia HENT: No: Headaches, Vertigo, Lightheadedness Cardiovascular: No: Irregular Rhythm, Chest Pain or Discomfort, Palpitations, Tachycardia, Syncope, Varicosities, Edema, Cyanosis Respiratory: No: Cough, Short of Breath, Other Gastrointestinal: Constipation, No: Nausea, Vomiting, Diarrhea Genitourinary: Vaginal Bleeding, No: Decreased Urinary Output, Oliguria Musculoskeletal: No: Limited ROM, Weakness, Cramping, Edema, Pain Skin: No Rash, No Itching, No Dryness, No Lumps, No Change in Pigmentation, No Change in Nails, No Alopecia, No Lesions Neurologic: No: Weakness, Dizziness, Syncope, Focal Abnormalities, Coordination Problem, Headache, Slurred Speech, Seizures Psychiatric: No: Depression, Suicidal Ideations, Homicidal Ideation Endocrine: No: Heat Intolerance, Cold Intolerance, Polydipsia, Polyuria, Other Physical Exam Vital Signs Date Time Temp Pulse Resp B/P Pulse Ox O2 Delivery O2 Flow Rate FiO2 05/24/16 12:00 97.0 50 12 127/70 98 05/24/16 10:52 18 05/24/16 08:00 96.6 52 14 105/55 96 05/24/16 04:50 96.4 79 18 102/59 97 05/24/16 01:01 96.5 62 18 115/55 96 05/23/16 20:00 97.5 79 17 126/68 97 05/23/16 16:00 96.9 55 18 113/68 95 05/23/16 15:51 55 Narrative GENERAL: thin, well-developed patient no acute distress SKIN: Warm and dry. HEAD: Normocephalic and atraumatic. EYES: No scleral icterus. No injection or drainage. ENT: No nasal drainage noted. Mucous membranes pink. Airway patent. NECK: Supple, trachea midline. No JVD. CARDIOVASCULAR: Regular rate and rhythm without murmurs, gallops, or rubs. RESPIRATORY: Breath sounds equal bilaterally. No accessory muscle use. BREASTS: Bilateral exam showed no masses , no retractions, no nipple discharge. ABDOMEN/GI: Abdomen soft, non-tender, bowel sounds present, no rebound, no guarding Pelvic exam shows normal external genitalia vagina no blood noted in the vagina , speculum exam was done to visualize the cervix looked totally normal Bi Manual exam done shows a mid position to retroflexed uterus with no cervical motion tenderness, normal size uterus no adnexal masses or pain EXTREMITIES: No cyanosis or edema. BACK: Nontender without obvious deformity. No CVA tenderness. NEUROLOGICAL: Awake and alert. Motor and sensory grossly within normal limits. Five out of 5 muscle strength in all muscle groups. Normal speech. Data Data Orders Med Onc Bar Trans-No Charge (05/24/16 ) Calcium Gluconate Inj (Calcium Gluconate (05/24/16 11:00) Consult Gynecology (05/24/16 ) (Hub Use Only)Inp Phy Cons/Ref (05/24/16 ) MDM Interpretation(s) The patient is a 40-year-old white female G0 with abnormal uterine bleeding related to the chronic anovulation and resulting breakthrough bleeding to the point that she is routinely anemic and coming in every several months to get blood transfusions, she needs a transvaginal ultrasound to measure the endometrial thickness and at that thickness is greater than 10 mm endometrial biopsy would be indicated to rule out neoplastic change however if the endometrial stripe is smaller than that then medical therapy can be implemented to try and decrease the amount of uterine bleeding that she is currently having Plan Plan is to check the ultrasound findings if biopsy not warranted noon would recommend the patient try and get a Mirena IUD placed, this IUD not only provides control but the side effect of this progesterone secreting IUD is no periods and in this patient's case that's exactly what we need if the IUD is not feasible as an outpatient and then would recommend a shot of Depo- Provera initially 150 mg every 3 months that can be increased to 300 mg if needed, patient is not a candidate for estrogen containing hormonal therapy long -term due to her smoking history. If none of these conservative measures can be done in the patient continues to have a problem then would recommend she's see one of the INTERNAL GRINDER SET UP OPERATOR doctors in [facility] for the possibility of having an endometrial ablation performed. Admitting diagnosis: symptomatic anemia, GI bleed Diagnosis: abnormal uterine bleeding, anemia Condition: Stable Scripts No Active Prescriptions or Reported Meds Patient Instructions: Gastrointestinal Bleeding (DC), Anemia (ED), Anemia (DC) Yandel Valdez II, MD May 24, 2016 13:04
[2016-05-24 13:57] LABS: HEPATITIS B SURFACE ANTIBODY 0.7 mIU/mL
--- NOTE | 2016-05-24 14:54 | RADRPT ---
EXAM DATE/TIME: 05/24/2016 14:01 [facility] COMPARISON: US PELVIS COMP W/TRANSVAGINAL, June 05, 2015, 11:15. INDICATIONS : Vaginal bleeding. MEDICAL HISTORY : Arthritis. Ulcers. Anemia. Fibromyalgia. Irregular periods. SURGICAL HISTORY : Carpal tunnel. ENCOUNTER: Initial ACUITY: 4-6 days PAIN SCORE: 5/10 LOCATION: Bilateral pelvis MEASUREMENTS: UTERUS: 7.2 x 3.7 x 4.3 cm ENDOMETRIAL STRIPE: 4 mm RIGHT OVARY: 4.5 x 1.7 x 4.3 cm LEFT OVARY: 1.4 x 0.7 x 1.2 cm FINDINGS: The previously seen left ovarian cysts have resolved. There is a tiny amount of fluid in the cul-de-s ac. In the left ovary there is an approximate 9 mm echogenic area may be the site of one of the previ ously seen cysts which has ruptured and is now hemorrhagic. There are small cysts in the right ovary the largest one measures 1.3 cm in size. The uterus is grossly intact. CONCLUSION: The previously seen left ovarian cysts are no longer seen and there is a small 9 mm hyperechoic area possibly one of those cysts which has bled in the interim. Repeat pelvic ultrasound is suggested in 6 months. Mojgan Barker MD on May 24, 2016 at 14:47 Board Certified Radiologist. This report was verified electronically.
[2016-05-24 16:00] VITALS: BP 95/51; PULSE 76; RESP 18; TEMP 96.8; O2SAT 96
[2016-05-24] MEDS ORDERED: NU-IRON PO (17:41)
[2016-05-24] MEDS ORDERED: CARA1TAB6 PO (17:41)
[2016-05-24] MEDS ORDERED: PROT40TA PO (17:41)
[2016-05-24] MEDS ORDERED: THIA200P IM (17:41)
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
[2016-05-24] MEDS ORDERED: medroxyPROGESTERone ACETATE SUSP 150 MG/ML SYRINGE IM ONE (18:00)
== END 2016-05-24 19:01 | disposition home or self-care (01) | DRG 812 ==
LOC: NEPD 15:14 → NEDA 17:19 → OBSVTOIN 17:26 → N07A 18:41
PROVIDERS: ADMIT Internal Medicine; ATTEND Internal Medicine
PROC: 30233N1 Transfusion of Nonautologous Red Blood Cells into Peripheral Vein, Percutaneous Approach (ICD-10-PCS; principal; 2016-05-19)
PROC: 0DB68ZX Excision of Stomach, Via Natural or Artificial Opening Endoscopic, Diagnostic (ICD-10-PCS; 2016-05-20)
DX: D50.0 Iron deficiency anemia secondary to blood loss (chronic) (principal); K25.9 Gastric ulcer, unspecified as acute or chronic, without hemorrhage or perforation; K92.2 Gastrointestinal hemorrhage, unspecified; I10 Essential (primary) hypertension; E87.6 Hypokalemia; K29.50 Unspecified chronic gastritis without bleeding; D50.9 Iron deficiency anemia, unspecified; K59.00 Constipation, unspecified; K21.9 Gastro-esophageal reflux disease without esophagitis; G89.29 Other chronic pain; M54.2 Cervicalgia; M54.5 Low back pain; N92.0 Excessive and frequent menstruation with regular cycle; K44.9 Diaphragmatic hernia without obstruction or gangrene; N92.6 Irregular menstruation, unspecified; N97.0 Female infertility associated with anovulation; F42.9 Obsessive-compulsive disorder, unspecified; H91.92 Unspecified hearing loss, left ear; M79.7 Fibromyalgia; M19.90 Unspecified osteoarthritis, unspecified site; F17.210 Nicotine dependence, cigarettes, uncomplicated; F41.9 Anxiety disorder, unspecified; F40.240 Claustrophobia; F98.8 Other specified behavioral and emotional disorders with onset usually occurring in childhood and adolescence; Y90.0 Blood alcohol level of less than 20 mg/100 ml; Z59.0 Homelessness; Z91.19 Patient's noncompliance with other medical treatment and regimen
CPT/HCPCS: 36430; 76830; 76856; 80048; 80053; 80061; 80307; 81001; 82550; 82607; 82747; 83036; 83615; 83690; 83735; 84100; 84155; 84439; 84443; 84484; 84702; 84703; 85014; 85018; 85025; 85610; 85730; 86317; 86703; 86705; 86803; 86850; 86880; 86900; 86901; 86920; 88305; 88312; 93005; 96374; C9113; J0610; J1050; J1756; J2270; J2405; J3411; J3475; J7030; P9016

== ENCOUNTER 2016-09-01 19:35 | Emergency (ER) | payer SELFPAY ==
[~2016-09-01 19:35] MED LIST changes: +CARA1TAB6 PO; +NU-IRON PO; -OMEP1CAP84 PO; +PROT40TA PO; +THIA200P IM
[2016-09-01 19:38] VITALS: BP 154/94; PULSE 90; RESP 16; TEMP 97.6; O2SAT 99
[2016-09-01] MEDS ORDERED: SODIUM CHLOR 0.9% 1000 ML INJ 1,000 ML IV SCH (22:26)
[2016-09-01] MEDS ORDERED: TUMS500C CHEW (22:27)
[2016-09-01] MEDS ORDERED: PANTOPRAZOLE SODIUM 40 MG VIAL IVP ONE (22:30)
[2016-09-01] MEDS ORDERED: SODIUM CHLORIDE 0.9% FLUSH 10 ML FLUSH IV FLUSH PRN (22:30)
[2016-09-01 22:55] LABS: AUTOMATED NEUTROPHIL # 8.5 TH/MM3 (1.8-7.7); BASOPHIL # 0.1 TH/MM3 (0-0.2); BASOPHIL % 0.7 % (0.0-2.0); EOSINOPHIL # 0.2 TH/MM3 (0-0.4); EOSINOPHIL % 1.8 % (0.0-4.0); HEMATOCRIT 37.9 % (35.0-46.0); HEMO FLAGS DIFF FINAL; LYMPH % 22.4 % (9.0-44.0); LYMPHOCYTE # 2.8 TH/MM3 (1.0-4.8); MEAN CELL VOLUME 91.8 FL (80.0-100.0); MEAN CORPUSCULAR HEMOGLOBIN 29.6 PG (27.0-34.0); MEAN CORPUSCULAR HGB CONC 32.3 % (32.0-36.0); MONO % 7.6 % (0.0-8.0); NEUT % 67.5 % (16.0-70.0); PLATELET COUNT 430 TH/MM3 (150-450); RED BLOOD COUNT 4.13 MIL/MM3 (4.00-5.30); RED CELL DISTRIBUTION WIDTH 15.7 % (11.6-17.2); WHITE BLOOD COUNT 12.6 TH/MM3 (4.0-11.0)
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
[2016-09-01 23:07] LABS: APTT (PATIENT) 24.9 SEC (24.3-30.1); INTERNATIONAL NORMALIZED RATIO 0.9 RATIO
[2016-09-01 23:11] LABS: BACTERIA, URINE OCC /hpf; BLOOD, URINE NEG (NEG); COMMENT (UR) CULTURE INDICATED; CULTURE IF INDICATED CULTURE INDICATED; GLUCOSE,URINE NEG (NEG); KETONE, URINE NEG (NEG); MUCUS URINE FEW /lpf (OCC); NITRITE,URINE POS (NEG); SQUAMOUS EPITHELIAL CELL URINE 4 /hpf (0-5); URINE COLOR YELLOW (YELLW/STRAW)
[2016-09-01] MEDS ORDERED: IOHEXOL 350 MG/ML 10 ML VIAL (for RAD DIAG) IV ONE (23:13)
[2016-09-01 23:37] LABS: ALKALINE PHOSPHATASE 53 U/L (45-117); ALT (GPT) 14 U/L (10-53); ANION GAP 6 MEQ/L (5-15); AST (GOT) 13 U/L (15-37); BICARBONATE 32.4 MEQ/L (21.0-32.0); BLOOD UREA NITROGEN 17 MG/DL (7-18); CHLORIDE 104 MEQ/L (98-107); GLOMERULAR FILTRATION RATE 66 ML/MIN (>89); SODIUM (NA) 142 MEQ/L (136-145); TOTAL BILIRUBIN ADULT 0.2 MG/DL (0.2-1.0)
--- NOTE | 2016-09-01 23:37 | RADRPT ---
EXAM DATE/TIME: 09/01/2016 23:11 [facility] COMPARISON: CT ABDOMEN & PELVIS W CONTRAST, January 12, 2016, 19:40. INDICATIONS : Epigastric pain with nausea and vomiting. IV CONTRAST: 75 cc Omnipaque 350 (iohexol) IV ORAL CONTRAST: No oral contrast ingested. RADIATION DOSE: 4.67 CTDIvol (mGy) MEDICAL HISTORY : Pancreatitis. Hernia, hiatal. SURGICAL HISTORY : None. ENCOUNTER: Initial ACUITY: 1 day PAIN SCALE: 9/10 LOCATION: epigastric TECHNIQUE: Volumetric scanning of the abdomen and pelvis was performed. Using automated exposure control and ad justment of the mA and/or kV according to patient size, radiation dose was kept as low as reasonably achievable to obtain optimal diagnostic quality images. DICOM format image data is available electro nically for review and comparison. FINDINGS: LOWER LUNGS: The visualized lower lungs are clear. LIVER: Homogeneous density without lesion. There is no dilation of the biliary tree. No calcified gallston es. Gallbladder is decompressed. SPLEEN: Normal size without lesion. PANCREAS: Within normal limits. KIDNEYS: Normal in size and shape. There is no mass or hydronephrosis. There is a stable 2 mm nonobstructing right renal stone. ADRENAL GLANDS: Within normal limits. VASCULAR: There is no aortic aneurysm. There is minimal atherosclerotic disease. BOWEL/MESENTERY: The stomach, small bowel, and colon demonstrate no acute abnormality. There is no free intraperitone al air or fluid. ABDOMINAL WALL: Within normal limits. RETROPERITONEUM: There is no lymphadenopathy. BLADDER: No wall thickening or mass. REPRODUCTIVE: Within normal limits. INGUINAL: There is no lymphadenopathy or hernia. MUSCULOSKELETAL: No acute abnormality. CONCLUSION: 1. No acute abnormality is identified in the abdomen or pelvis to explain the clinical symptoms. 2. There is a stable 2 mm nonobstructing right renal stone. Baldemar Birmingham MD on September 01, 2016 at 23:33 Board Certified Radiologist. This report was verified electronically.
[2016-09-01 23:40] LABS: CALCIUM-PROTEIN CORRECTED 11.8 MG/DL (8.5-10.1)
[2016-09-02] MEDS ORDERED: SODIUM CHLOR 0.9% 1000 ML INJ 1,000 ML IV ONE
[2016-09-02] MEDS ORDERED: cefTRIAXone INJ 1,000 MG in SODIUM CHLORIDE 0.9% INJ 100 ML IV ONE ×2
[2016-09-02] MEDS ORDERED: POTASSIUM CHLORIDE 20 MEQ CONTROLLED RELEASE TAB PO SCH
[2016-09-02] MEDS ORDERED: POTA-163 PO (00:05)
[2016-09-02] MEDS ORDERED: MACR100C2 PO (00:05)
[2016-09-02] MEDS ORDERED: PRIL20TA2 PO (00:05)
== END 2016-09-02 00:48 | disposition home or self-care (01) ==
LOC: NEPC 19:35
DX: R10.13 Epigastric pain (principal); E87.6 Hypokalemia; E83.52 Hypercalcemia; N39.0 Urinary tract infection, site not specified; R19.7 Diarrhea, unspecified; D64.9 Anemia, unspecified; J44.9 Chronic obstructive pulmonary disease, unspecified; I10 Essential (primary) hypertension; M79.7 Fibromyalgia
CPT/HCPCS: 74177; 80053; 80307; 81001; 83605; 83690; 84703; 85025; 85610; 85730; 87077; 87086; 87186; 96361; 96365; 96375; 99285; C9113; J0696; J7030; Q9967

== ENCOUNTER → 2016-10-29 | Outpatient (CLI) | payer OTHER ==
[~2016-10-29] MED LIST changes: +BUSP10TA PO; -CARA1TAB6 PO; +DEPO150I IM; +FERR325T8 PO; +GABA300C5 PO; +HYDR1CAP30 PO; +MEDR150I9 IM; -NU-IRON PO; +PANT40TA3 PO; +PARO20TA2 PO; +POTA-163 PO; -PROT40TA PO; +SUCR1TAB PO; -THIA200P IM
--- NOTE | 2016-10-29 16:15 | EKG ---
Date Performed: 10/29/2016 Time Performed: 10:33:42 PTAGE: 41 years EKG: Sinus bradycardia. Poor R wave progression - probable normal variant or lead placement Sept al T wave changes are nonspecific Borderline ECG Since PREVIOUS TRACING , no significant change likely PREVIOUS TRACIN05/19/2016 16.39 DOCTOR: Jodi Baig Interpretating Date/Time 10/29/2016 16:15:06
--- NOTE | 2016-10-29 18:26 | ECHRPT ---
Indication: syncope CONCLUSIONS The left ventricular systolic function is low normal with an estimated ejection fraction in the rang e of 50- 55%. Mild mitral valve regurgitation. There is mild tricuspid valve regurgitation. BP: / HR: Rhythm: MEASUREMENTS (Male / Female) Normal Values Technical Quality:Good 2D ECHO LV Diastolic Diameter PLAX 4.3 cm 4.2 - 5.9 / 3.9 - 5.3 cm LV Systolic Diameter PLAX 3.3 cm IVS Diastolic Thickness 1.0 cm 0.6 - 1.0 / 0.6 - 0.9 cm LVPW Diastolic Thickness 1.1 cm 0.6 - 1.0 / 0.6 - 0.9 cm LV Relative Wall Thickness 0.5 RV Internal Dim ED PLAX 2.7 cm M-MODE Aortic Root Diameter MM 2.9 cm LA Systolic Diameter MM 3.1 cm LA Ao Ratio MM 1.1 AV Cusp Separation MM 1.9 cm DOPPLER Mitral E Point Velocity 85.4 cm/s Mitral A Point Velocity 42.9 cm/s Mitral E to A Ratio 2.0 LV E' Lateral Velocity 10.5 cm/s Mitral E to LV E' Lateral Ratio 8.1 LV E' Septal Velocity 11.8 cm/s Mitral E to LV E' Septal Ratio 7.2 TR Peak Velocity 277.0 cm/s TR Peak Gradient 30.7 mmHg Right Atrial Pressure 10.0 mmHg Pulmonary Artery Systolic Pressu 40.7 mmHg Right Ventricular Systolic Press 40.7 mmHg FINDINGS LEFT VENTRICLE The left ventricular systolic function is low normal with an estimated ejection fraction in the rang e of 50- 55%. Normal left ventricular size. Wall thickness is normal. No regional wall motion abnormalities are present. RIGHT VENTRICLE Normal right ventricular size and systolic function. LEFT ATRIUM The left atrial size is normal. RIGHT ATRIUM The right atrial size is normal. ATRIAL SEPTUM Normal atrial septal thickness without atrial level shunting by limited color doppler interrogation. AORTA The aortic root and proximal ascending aorta are normal in size on limited imaging. MITRAL VALVE Structurally normal mitral valve. No mitral valve stenosis. Mild mitral valve regurgitation. AORTIC VALVE Trileaflet aortic valve. No aortic valve stenosis or regurgitation. TRICUSPID VALVE Structurally normal tricuspid valve. There is mild tricuspid valve regurgitation. No tricuspid valve stenosis. PULMONARY VALVE No pulmonary valve regurgitation or stenosis. VESSELS The inferior vena cava is normal in size. PERICARDIUM No pericardial effusion. Zackary Sagastume DO (Electronically Signed) Final Date:29 October 2016 18:25
== END ==
LOC: HECH 08:47
PROVIDERS: ATTEND Family Medicine
DX: R55 Syncope and collapse (principal); I34.0 Nonrheumatic mitral (valve) insufficiency; R94.31 Abnormal electrocardiogram [ECG] [EKG]
CPT/HCPCS: 93005; 93306

== ENCOUNTER → 2016-10-29 | Outpatient (CLI) | payer OTHER ==
[2016-10-29 11:29] LABS: ANION GAP 4 MEQ/L (5-15); AST (GOT) 22 U/L (15-37); BICARBONATE 25.9 MEQ/L (21.0-32.0); BLOOD UREA NITROGEN 18 MG/DL (7-18); CHLORIDE 109 MEQ/L (98-107); GLOMERULAR FILTRATION RATE 119 ML/MIN (>89); GLUCOSE,FASTING 95 MG/DL (74-99); POTASSIUM 4.5 MEQ/L (3.5-5.1); SODIUM (NA) 139 MEQ/L (136-145)
[2016-10-29 11:30] LABS: ALT (GPT) 25 U/L (10-53)
[2016-10-29 11:32] LABS: ALKALINE PHOSPHATASE 42 U/L (45-117); TOTAL BILIRUBIN ADULT 0.2 MG/DL (0.2-1.0)
== END ==
LOC: CLAB 10:51
PROVIDERS: ATTEND Nurse Practitioner Family
DX: R55 Syncope and collapse (principal)
CPT/HCPCS: 36415; 80053

== ENCOUNTER → 2016-11-03 | Outpatient (CLI) | payer OTHER ==
[2016-11-03 12:46] LABS: HEMATOCRIT 27.9 % (35.0-46.0); MEAN CELL VOLUME 81.5 FL (80.0-100.0); MEAN CORPUSCULAR HEMOGLOBIN 25.7 PG (27.0-34.0); MEAN CORPUSCULAR HGB CONC 31.5 % (32.0-36.0); PLATELET COUNT 431 TH/MM3 (150-450); RED BLOOD COUNT 3.42 MIL/MM3 (4.00-5.30); REVIEW FLAG FINAL; WHITE BLOOD COUNT 8.9 TH/MM3 (4.0-11.0)
== END ==
LOC: CLAB 12:27
PROVIDERS: ATTEND Nurse Practitioner Family
DX: D50.0 Iron deficiency anemia secondary to blood loss (chronic) (principal)
CPT/HCPCS: 36415; 85027

== ENCOUNTER → 2016-11-19 | Outpatient (CLI) | payer OTHER ==
--- NOTE | 2016-11-19 12:51 | RADRPT ---
EXAM DATE/TIME: 11/19/2016 11:44 [facility] COMPARISON: No previous studies available for comparison. INDICATIONS : Syncope. Stenosis. MEDICAL HISTORY : Migraine. Ulcer. Pancreatitis. Arthritis. Fibromyalgia. Anemia. Blood tra nsfusion. SURGICAL HISTORY : Carpal tunnel repair, both hands. ENCOUNTER: Initial ACUITY: 1 day PAIN SCORE: 0/10 LOCATION: Bilateral neck PEAK SYSTOLIC VELOCITIES (cm/sec): ICA/CCA RATIO: Right: 1.1 Left: 1.0 ICA: Right: 107 Left: 114 CCA: Right: 97 Left: 116 ECA: Right: 89 Left: 94 VERTEBRAL: Right: 71 antegrade Left: 70 antegrade Elevated flow velocities and ICA/CCA ratios have been found to correlate with increased degrees of vessel stenosis, calculated as percentage of diameter relative to a normal segment of distal ICA/CCA FINDINGS: RIGHT CAROTID: No significant stenosis is visualized. The waveforms are within normal limits. LEFT CAROTID: No significant stenosis is visualized. The waveforms are within normal limits. VERTEBRAL ARTERIES: Antegrade flow is seen in both vertebral arteries. MISCELLANEOUS: None. CONCLUSION: Negative. Eliel Espinosa MD FACR on November 19, 2016 at 12:49 Board Certified Radiologist. This report was verified electronically.
== END ==
LOC: HRAD 11:14
PROVIDERS: ATTEND Nurse Practitioner Family
DX: I65.22 Occlusion and stenosis of left carotid artery (principal)
CPT/HCPCS: 93880